=== PATIENT | male | born 1990 | race Native Hawaiian/Other Pacific Islander ===

== ENCOUNTER → 2024-09-25 14:24 | Outpatient (BNVA) | payer OTHER, SELFPAY | PROVIDERS: PCP Student in an Organized Health Care Education/Training Program; Visit Provider Physician Assistant Surgical ==

== ENCOUNTER 2024-10-21 08:29 | Outpatient (AMB) | payer OTHER, SELFPAY ==
--- OUTSIDE RECORDS SUMMARY | 2024-10-21 08:35 | XMS_ITS | Clinical Summary ---
Author Organization [facility] ity Address [address] [place] [address] Care Team Providers Care Manager Environmental Name Role Phone Unavailable Primary Care Provider Unavailabl e Social History Tobacco Use Types Packs/Day Years Used Date Smoking Tobacco: Every Day Cigarettes Smokeless Tobacco: Never Alcohol Use Standard Drinks/Week Comments Yes 0 (1 standard drink = 0.6 oz pur e alcohol) Sex and Gender Information Value Date Recorded Sex Assigned at Not on file Legal Sex Male 1:32 AM EST Gender Identity Not on file Sexual Orientation Not on file Obstetrics History Plan of Treatment Health Maintenance Due Date Last Done Comments DTaP,Tdap,and Td Vaccines (1 - Tdap) 2009 Hepatitis B Vaccines (1 of 3 - 19+ 3-dose series) 2009 COVID-19 Vaccine (2023-2 5 season) 2023 Influenza Vaccine (#1) 2024 HIB Vaccines Aged Out No longer eligi ble based on patient's age to complete this topic HPV Vaccines Aged Out No longer eligi ble based on patient's age to complete this topic Hepatitis A Vaccines Aged Out No long er eligible based on patient's age to complete this topic IPV Vaccines Aged Out No longer eligi ble based on patient's age to complete this topic MMR Vaccines Aged Out No longer eligi ble based on patient's age to complete this topic Meningococcal ACWY Vaccine Aged Out N o longer eligible based on patient's age to complete this topic Meningococcal B Vaccine Aged Out No l onger eligible based on patient's age to complete this topic Pneumococcal Vaccine: Pediat rics (0 to 5 Years) and At-Risk Patients (6 to 49 Years) Aged Out No longer eligible b ased on patient's age to complete this topic RSV Immunization Patients Un ros 20 months Aged Out No longer eligible b ased on patient's age to complete this topic Varicella Vaccines Aged Out No longer eligible based on patient's age to complete this topic
--- NOTE | 2024-10-21 11:07 | MHC.OFFVISWM ---
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 BMI 46.3: Details: Start time: 11.01am, End time: 11.46am I spent 40 minutes speaking with the patient on the phone plus an additional 5 minutes reviewing and updating records for a total of 45 minutes HPI Comments Details: Previous weight loss efforts: self diet and exercise Wakes up: 5am, Sleeps: 10pm Breakfast: skips Lunch: 1-2pm (eggs, bread, pereira) Dinner: 8pm (rice, beans, chicken) Snacks: none Exercise: Gym Beverages: Coffee (1 cup/d with cream and sugar), tea: none, soda: Red Bulls (1-2/d x4/wk), juice: ([place] 2/mth), ETOH: none (quit a year ago: 1/2 gallon per day of Tequila) [facility] Medical History (Updated 10/21/24 @ 11:11 by Angel Pena MD) Hypertension Sleep apnea treated with continuous positive airway pressure (CPAP) Morbid obesity Surgical History (Updated 09/25/24 @ 15:22 by Marce Chavez CMA) Hx of oral surgery Hx of appendectomy Family History (Updated 09/25/24 @ 15:22 by Marce Chavez CMA) Mother Diabetes Arthritis Father No problems noted. Social History (Updated 09/25/24 @ 15:23 by Marce Chavez CMA) Alcohol intake: never Patient Tobacco Use Status: Never used Tobacco Telehealth Telehealth Telehealth Platform: Telephone Location of provider rendering services: practice address Location of patient: address on file Patient Identification confirmed using: Name, : Yes Telehealth method: voice only Patient verbally consented to treatment: Yes Patient verbally consented to billing insurance company: Yes Patient informed of any privacy concerns related to visit: Yes Minutes spent on Phone/Video with Pt.: 45 Assessment & Plan Assessment & Plan (1) Morbid obesity: Code(s): E66.01 - Morbid (severe) obesity due to excess calories Category: Medical Plan: 1. Plan for lap sleeve gastrectomy. If diaphragmatic or ventral hernias are present at time of surgery, these will be repaired laparoscopically as well. I emphasized the importance of close follow-up, adherence to instructions and good communication. The surgery does not replace the need to change your lifestlyle which is the cause of the obesity problem. The surgery provides the motivation to try again to change your lifestyle, it reduces the appetite and make the transition to a better lifestyle easier and doubles the amount of weight you would lose compared to doing the lifestyle change without the surgery. You will need to be on a liquid diet with protein shakes for 2 weeks before surgery to maximize weight loss and boost your nutritional status to recover better from surgery and also for the first two weeks after surgery to let the stomach heal before we introduce other foods. After the first 2 weeks we will introduce protein bars and soft foods like scrambled eggs, cottage cheese and yogurt and after the 6th week will introduce meat, fish and cooked vegetables in small amounts. Over time you should be able to eat everything in small amounts. Side effects like nausea, vomiting, heartburn or abdominal pain are not common in the practice unless you are not following in the practice. This operation requires lifetime commitment to following in our practice and communication with me. You will much less weight and experience side effects if you don?t communicate or not following in the practice. Complications are rare and in our practice is about 1/10 of the national average. However, you can develop bleeding that may require transfusion (hasn?t happened for year in the practice), you may from complications (we did not have any deaths in the practice) and infections. Infections are usually a result of breakdown in communication or not understanding or following directions correctly. They are difficult to treat, they can happen during the first 6 weeks, they may require to be in the hospital for weeks or even months, not being able to eat by mouth and you may have drains and surgeries to try and correct the issue. Other risks and complications include possible conversion to an open procedure, leaks, small bowel obstruction, blood clots, cardiac, or pulmonary complications, as termination clerk complications such as ulcers, insufficient weight loss and vitamin deficiencies. 2. You will receive a link of our software denise to generate an individualized nutritional and exercise plan specific for you. Please send me a screenshot of the plans you will generate Meal to include lean meat (beef, fish, pork, turkey, chicken), or [place] yogurt, or egg whites, or beans with a salad with olive oil and fruits (berries, pears, apples, kiwi). Avoid salt, breads, potatoes, rice, pasta, desserts. 3. If you choose shakes, each shake would be drunk slowly, like coffee in a period of 2 hours. 4. If you choose bars, cut each bar in 4 pieces and eat each piece in 30min to make each bar last 2 hours. 5. I emphasized the importance of measuring accurately the food portion and measure it when serving the food in plate 6. The meal portions include a specific number of forks of meat and salad. You always eat the meat portion but you can replace up to half of salad/vegetables portion with rice, potatoes or pasta, or a fruit if you like. The less you do it the better weight loss will be. 7. One full-size fork is what it can be scooped on the fork without falling aside and not what can be bit with the fork. Use regular forks like those you find in a typical restaurant. 8. Please buy the body composition scale we discussed and send me weight measurements as soon as possible and then once a week. Always include your diet and exercise plan. 9. Please use the [employer] denise to create an exercise plan with one of the equipment of the Gym 10. Goal is to lose at least 1.5-2lbs per week 11. Goal to lose 10% of your weight before surgery, which is about 33lbs. Ultimate weight goal: 290lbs before surgery 12. Please follow the diet plan exactly without any change. If you don't like something about the plan or you feel hungry you need to communicate with me so I can help you revise the plan. You should not change the plan yourself. 13. To be scheduled for EGD to assess the stomach's anatomy.The possibility of biopsies was discussed. Patient needs to avoid use of NSAIDs and aspirin for 1 week prior to EGD. You must be on liquids only the day before your endoscopy. Risks of perforation and bleeding was discussed with the patient. This will be an outpatient procedure with IV sedation. Orders: Orders Insulin Today E66.01 - Morbid (severe) obesity due to excess calories, G47.30 - Sleep apnea, unspecified, I10 - Essential (primary) hypertension Hemoglobin A1c Today E66.01 - Morbid (severe) obesity due to excess calories, G47.30 - Sleep apnea, unspecified, I10 - Essential (primary) hypertension Lipid Panel Today E66.01 - Morbid (severe) obesity due to excess calories, G47.30 - Sleep apnea, unspecified, I10 - Essential (primary) hypertension IRON PROFILE Today E66.01 - Morbid (severe) obesity due to excess calories, G47.30 - Sleep apnea, unspecified, I10 - Essential (primary) hypertension Comprehensive Met. Panel Today E66.01 - Morbid (severe) obesity due to excess calories, G47.30 - Sleep apnea, unspecified, I10 - Essential (primary) hypertension C Reactive Protein Today E66.01 - Morbid (severe) obesity due to excess calories, G47.30 - Sleep apnea, unspecified, I10 - Essential (primary) hypertension Vitamin A Today E66.01 - Morbid (severe) obesity due to excess calories, G47.30 - Sleep apnea, unspecified, I10 - Essential (primary) hypertension TSH reflex Free T4 Today E66.01 - Morbid (severe) obesity due to excess calories, G47.30 - Sleep apnea, unspecified, I10 - Essential (primary) hypertension US abdomen comp w elastography Today E66.01 - Morbid (severe) obesity due to excess calories, G47.30 - Sleep apnea, unspecified, I10 - Essential (primary) hypertension ECG 12 lead EKG Today E66.01 - Morbid (severe) obesity due to excess calories, G47.30 - Sleep apnea, unspecified, I10 - Essential (primary) hypertension FL upper GI w air Today E66.01 - Morbid (severe) obesity due to excess calories, G47.30 - Sleep apnea, unspecified, I10 - Essential (primary) hypertension H Pylori Breath Test Today E66.01 - Morbid (severe) obesity due to excess calories, G47.30 - Sleep apnea, unspecified, I10 - Essential (primary) hypertension Complete Blood Count Auto Diff Today E66.01 - Morbid (severe) obesity due to excess calories, G47.30 - Sleep apnea, unspecified, I10 - Essential (primary) hypertension Vitamin B12 and Folate Today E66.01 - Morbid (severe) obesity due to excess calories, G47.30 - Sleep apnea, unspecified, I10 - Essential (primary) hypertension Zinc Today E66.01 - Morbid (severe) obesity due to excess calories, G47.30 - Sleep apnea, unspecified, I10 - Essential (primary) hypertension Vitamin B1 Today E66.01 - Morbid (severe) obesity due to excess calories, G47.30 - Sleep apnea, unspecified, I10 - Essential (primary) hypertension Ferritin Today E66.01 - Morbid (severe) obesity due to excess calories, G47.30 - Sleep apnea, unspecified, I10 - Essential (primary) hypertension Vitamin D 25-OH Total Today E66.01 - Morbid (severe) obesity due to excess calories, G47.30 - Sleep apnea, unspecified, I10 - Essential (primary) hypertension XR chest 2V Today E66.01 - Morbid (severe) obesity due to excess calories, G47.30 - Sleep apnea, unspecified, I10 - Essential (primary) hypertension Referrals Nutrition/Dietitian Referral E66.01 - Morbid (severe) obesity due to excess calories, G47.30 - Sleep apnea, unspecified, I10 - Essential (primary) hypertension Behavioral Health Referral E66.01 - Morbid (severe) obesity due to excess calories, G47.30 - Sleep apnea, unspecified, I10 - Essential (primary) hypertension
[2024-10-21 11:23] VITALS: BMI 46.3
== END 2024-10-21 11:47 | disposition home or self-care (01) ==
LOC: HO.HBS 08:29
PROVIDERS: PCP Student in an Organized Health Care Education/Training Program; Visit Provider Surgery
DX: E66.01 Morbid (severe) obesity due to excess calories (principal)
CPT/HCPCS: 99204

== ENCOUNTER 2024-10-21 08:29 | Outpatient (REF) | payer OTHER, SELFPAY ==
--- NOTE | ~2024-10-21 | XR_ITS ---
EXAMINATION: XR CHEST CLINICAL INFORMATION: E66.01 - Morbid (severe) obesity due to excess calories COMPARISON: None available. TECHNIQUE: 2 views of the chest were obtained. FINDINGS: The cardiac, hilar, and mediastinal contours are normal. The lungs are clear bilaterally. There is no pneumothorax or pleural effusion. There is no focal osseous or soft tissue abnormality. XR/XR chest 2V IMPRESSION: Normal chest. Electronically signed by: Deyvi Gonzalez MD 10/21/2024 01:26 PM EDT
--- NOTE | 2024-10-21 13:01 | ECG_ITS ---
Test Reason : E66.01 - Morbid (severe) obesity due to excess calories Blood Pressure : */* mmHG Vent. Rate : 53 BPM Atrial Rate : 53 BPM P-R Int : 132 ms QRS Dur : 100 ms QT Int : 458 ms P-R-T Axes : 16 -11 4 degrees QTcB Int : 429 ms Sinus bradycardia Minimal voltage criteria for LVH, may be normal variant ( R in aVL ) Borderline ECG No previous ECGs available Referred By: Angel Pena Electronically Signed By: JUNAID SAGASTUME
== END 2024-10-21 08:30 | disposition home or self-care (01) ==
LOC: HO.XRAY 08:29
PROVIDERS: PCP Student in an Organized Health Care Education/Training Program; Visit Provider Surgery
DX: E66.01 Morbid (severe) obesity due to excess calories (principal); G47.30 Sleep apnea, unspecified; I10 Essential (primary) hypertension; Z68.42 Body mass index [BMI] 45.0-49.9, adult; Z79.899 Other long term (current) drug therapy
CPT/HCPCS: 71046; 93005

== ENCOUNTER → 2024-10-21 13:01 | Outpatient (BNV) | payer OTHER, SELFPAY | PROVIDERS: PCP Student in an Organized Health Care Education/Training Program; Visit Provider Internal Medicine | DX: R00.1 Bradycardia, unspecified (principal) | CPT/HCPCS: 93010 ==

== ENCOUNTER → 2024-10-21 13:16 | Outpatient (BNV) | payer OTHER, SELFPAY | PROVIDERS: PCP Student in an Organized Health Care Education/Training Program; Visit Provider Radiology Diagnostic Radiology | DX: I10 Essential (primary) hypertension (principal); E66.01 Morbid (severe) obesity due to excess calories | CPT/HCPCS: 71046 ==

== ENCOUNTER 2024-11-05 10:32 | Outpatient (REF) | payer OTHER, SELFPAY ==
[2024-11-05 10:52] LABS: MANUAL DIFF FLAG NO
[2024-11-05 11:30] LABS: Hematocrit 41.4 % (42.0-52.0); Hemoglobin 13.5 g/dl (14.0-18.0); Imm Gran Abs Auto 0.02 X10*3/uL (0.00-0.03); Imm Gran Pct Auto 0.3 % (0.0-0.4); Lymphocytes Absolute Auto 2.5 X10*3/uL (1.2-4.9); Mean Corpuscular HGB Conc 32.6 g/dl (31.0-36.0); Mean Corpuscular Hemoglobin 26.4 pg (27.0-33.0); Mean Corpuscular Volume 81.0 fL (80.0-98.0); NRBC Abs Auto 0.000 X10*3/uL (0.0-0.012); NRBC Pct Auto 0.0 /100WBC (0.0-0.2); Platelet Count 263 X10*3/uL (160-400); Red Blood Count 5.11 X10*6/uL (4.60-5.80); White Blood Count 7.5 X10*3/uL (4.8-10.8)
--- OUTSIDE RECORDS SUMMARY | 2024-11-05 11:34 | XMS_ITS | Clinical Summary ---
Author Organization [facility] ity Address [address] [place] [address] Care Team Providers Care Master Ship Name Role Phone Unavailable Primary Care Provider [...] - 19+ 3-dose series) 2009 COVID-19 Vaccine ( - 2023-2 5 season) 2023 Depression Screening 04/10/2024 Influenza [...]
[2024-11-05 11:43] LABS: Hemoglobin A1C 139.7375 umol/L; Total Hemoglobin (HGBA1C) 3500.1324 umol/L
[2024-11-05 12:10] LABS: Alanine Aminotransferase 68 U/L (0-40); Albumin Level 4.3 g/dL (3.5-5.0); Alkaline Phosphatase 104 U/L (39-117); Anion Gap 12 (12-20); Aspartate Amino Transferase 40 U/L (5-37); Blood Urea Nitrogen 11 mg/dL (9-16); Calcium 9.4 mg/dL (8.4-10.2); Carbon Dioxide 23 mmol/L (22-29); Chloride 108 mmol/L (96-108); Cholesterol 177 mg/dL (<200); Estimated Glomerular Filt Rate > 60; HDL Cholesterol 25 mg/dL (>40); Iron 62 mcg/dL (45-160); Percent Iron Saturation 21 % (15-50); Potassium 4.1 mmol/L (3.3-5.1); Sodium 139 mmol/L (135-145); Total Iron Binding Capacity 289 mcg/dL (228-428); Total Protein 7.8 g/dL (6.5-8.0); Triglycerides 290 mg/dL (<150); Unsaturated Iron Binding 227 ug/dL
[2024-11-05 12:30] LABS: Ferritin 154 ng/mL (20-250)
[2024-11-05 12:35] LABS: Folate 7.1 ng/mL (> or = 4.0); Vitamin B12 374 pg/mL (200-900)
== END 2024-11-05 10:33 | disposition home or self-care (01) ==
LOC: HO.LAB 10:32
PROVIDERS: Visit Provider Surgery
DX: I10 Essential (primary) hypertension (principal); E66.01 Morbid (severe) obesity due to excess calories; G47.30 Sleep apnea, unspecified
CPT/HCPCS: 36415; 80053; 80061; 82306; 82607; 82728; 82746; 83036; 83525; 83540; 84425; 84443; 84590; 84630; 85025; 86140

== ENCOUNTER 2024-11-18 10:00 | Outpatient (AMB) | payer OTHER, SELFPAY ==
--- NOTE | 2024-11-18 10:10 | A.OFFWM_ITS ---
Intake Intake Visit Reasons: OV BH Intake Allergies No Known Allergies Allergy (Verified 10/21/24 11:08) [facility] Medical History (Updated 11/11/24 @ 19:34 by Angel Pena MD) Hypertension Sleep apnea treated with continuous positive airway pressure (CPAP) Morbid obesity Surgical History (Updated 09/25/24 @ 15:22 by Marce Chavez CMA) Hx of oral surgery Hx of appendectomy Family History (Updated 09/25/24 @ 15:22 by Marce Chavez CMA) Mother Diabetes Arthritis Father No problems noted. Social History (Updated 09/25/24 @ 15:23 by Marce Chavez CMA) Alcohol intake: never Patient Tobacco Use Status: Never used Tobacco Behavioral Health Assessment Weight Management Therapy Therapy Notes Details The patient is a 34-year-old male presenting for an initial behavioral health assessment as part of the surgical weight loss program. He was referred by a friend who previously underwent bariatric surgery. The patient reports medical concerns including pre-diabetes and high blood pressure, and he is seeking a long-term lifestyle change. His primary goals include improving his relationship with food and developing healthier eating habits to support overall well-being and weight management. Presenting Concerns Referral Source WMP-Provider. Reason for referral Completion of behavioral health assessment as part of process for weight-loss surgery. Precipitating Event Obesity. Living Situation Current Living Situation Rent At risk of losing current housing? No Satisfied with current living situation? Yes Comments PT lives alone. Social History Family history and relationship PT is single, never . Mother alive, Bio-father a couple of months ago. She has a sister from her mother's side, and two siblings from her father's side, whom she doesn't know. PT is close to his mother, they have Monday dinner every week. Parental/Familial rod filler obligations None. Developmental history and status None. Currently WNL. Social support Mother, leaders at his confucianism. Community support Congregational community. Episcopalian/Spirituality Cheondoism goes to confucianism 3 times a week. Cultural/Ethnic information . South African. Legal Involvement and History Current or historical involvement with the legal system? Arrested in the past. Education Highest grade completed HS and 1 year of college. [employer] license. Preferred learning style Learn by doing and Visual Currently enrolled in educational program? No Interested in further educational program? Yes Educational Interests/Skills Anat-related activities. Would like to do bible school. Employment Employment Status [employer] ([employer] Wants help to find employment? No Meaningful activities Anat-related activities. Hiking, outdoor meditation. Financial Situation Describe current financial situation Comfortable Financial assistance? Food [place] Service Service? No Mental Health and Addiction Treatment Current/Past substance abuse? No Comments Alcohol: None Currently. Last time Cigarettes/Tobacco: None Currently. Last time Cannabis/Edibles: None Currently. Last time Current/Past addictive behavior concerns? No Psychiatric history PT has never been in any type of MH treatment in the past or been Dx with any MH condition by any professional. Also, never been on any psych meds. Medical and Physical Health Summary Additional Medical History not covered in history pre-diabetes. Sexual History concerns None reported [facility] Pain Screening Current pain? No Pain in the last few months? Yes Comments Shoulder, Knee and lower back pain. Medications Is the patient compliant with medications? Yes Does the patient have Alex Guardian in place? Not applicable Does the patient use complimentary health approaches? No Trauma/Abuse History0 History of trauma? No (None reported in session - GROVER score:4) Questionnaires PHQ-9 Over the last 2 weeks, how often have you been bothered by any of the following problems? 1. Little interest or pleasure in doing things: not at all 2. Feeling down, depressed, or hopeless: not at all 3. Trouble falling or staying asleep, or sleeping too much: several days 4. Feeling tired or having little energy: several days 5. Poor appetite or overeating: nearly every day 6. Feeling bad about yourself - or that you are a failure or have let yourself or your family down: not at all 7. Trouble concentrating on things, such as reading the newspaper or watching television: several days 8. Moving or speaking so slowly that other people could have noticed. Or the opposite - being so fidgety or restless that you have been moving around a lot more than usual: not at all 9. Thoughts that you would be better off or of hurting yourself in some way: not at all Total score: 6 Depression Screening Interpretation: Positive (From new PT pack completed 09/25/24) Depression Screening Done: Yes Source: Developed by Drs. Fred Rivera, Belem Mendoza, Kit Sanderson and colleagues, with an educational luciano from [employer]. Binge Eating Scale Group 1 A. I don't feel self-conscious about my wt. or body size when I'm with others. B. I feel concerned about how I look to others, but it normally does not make me fell disappointed with myself C. I do get self-conscious about my appearance and wt. which makes me feel disappointed in myself. D. I feel very self-conscious about my wt. and frequently I feel intense shame and disgust for myself. I try to avoid social contacts because of my self- consciousness. Response Group 1: B Group 2 A. I don't have any difficulty eating slowly in the proper manner. B. Although I seem to gobble down foods, I don't end up feeling stuffed because of eating to much. C. At times, I tend to eat quickly and then, I feel uncomfortably full afterwards. D. I have the habit of bolting down my food, without really chewing it. When this happens I usually feel uncomfortably stuffed because I've eaten to much. Response Group 2: C Group 3 A. I feel capable to control my eating urges when I want to. B. I feel like I have failed to control my eating more than the average person. C. I feel utterly helpless when it comes to feeling in control of my eating urges. D. Because I feel so helpless about controlling my eating I have become very desperate about trying to get control. Response Group 3: B Group 4 A. I don't have the habit of eating when I'm bored. B. I sometimes eat when I'm bored, but often I'm able to get busy and get my mind off food. C. I have a regular habit of eating when I'm bored, but occasionally, I can use some other activity to get my mind off eating. D. I have a strong habit of eating when I'm bored. Nothing seems to help me breath the habit. Response Group 4: C Group 5 A. I'm usually physically hungry when I eat something. B. Occasionally, I eat something on impulse even though I really am not hungry. C. I have the regular habit of eating foods, that I might not really enjoy, to satisfy a hungry feeling even though physically, I don't need the food. D. Although I'm not physically hungry, I get a hungry feeling in my mouth that only seems to be satisfied when I eat a food, like sandwich, that fills my mouth. Sometimes, when I eat the food to satisfy my mouth hunger, I then spit the food out so I won't gain weight. Response Group 5: B Group 7 A. I don't lose total control of my eating when dieting even after periods when I overeat. B. Sometimes when I eat a forbidden food on a diet, I feel like I blew it and eat even more. C. Frequently, I have the habit of saying to myself, I've blown it now, why not go all the way, when I overeat on a diet. When that happens I eat more. D. I have a regular habit of starting a strict diets for myself but I break the diets by going on an eating binge. My life seems to be either a feast or famine. Response Group 7: B Group 8 A. I rarely eat so much food that I feel uncomfortably stuffed afterwards. B. Usually about once a month, I each such a quantity of food, I end up feeling very stuffed. C. I have regular periods during the month when I eat large amounts of food, either at mealtime or at snacks. D. I eat so much food that I regularly feel quite uncomfortable after eating and sometimes a bit nauseous. Response Group 8: C Group 9 A. My level of calorie intake does not go up very high or go down very low on a regular basis. B. Sometimes after I overeat, I will try to reduce my caloric intake to almost nothing to compensate for the excess calories I've eaten. C. I have a regular habit of overeating during the night. It seems that my routine is not to be hungry in the morning but overeat in the evening. D. In my adult years, I have had week-long periods where I practically starve myself. This follows periods when I overeat. It seems I live a life of either feast or famine. Response Group 9: C Group 10 A. I usually am able to stop eating when I want to. I know when enough is enough. B. Every so often, I experience a compulsion to eat which I can't seem to control. C. Frequently, I experience strong urges to eat which I seem unable to control, but at other times I can control my eating urges. D. I feel incapable of controlling urges to eat. I have a fear of not being able to stop eating voluntarily. Response Group 10: C Group 11 A. I don't have any problem stopping eating when I feel full. B. I usually can stop eating when I feel full but occasionally overeat leaving me feeling uncomfortably stuffed. C. I have a problem stopping eating once I start and usually I feel uncomfortably stuffed after I eat a meal. D. Because I have a problem not being able to stop eating when I want, I sometimes have to induce vomiting to relieve my stuffed feeling. Response Group 11: B Group 12 A. I seem to eat just as much when I'm with others, Family social gatherings as when I'm by myself. B. Sometimes, when I'm with other persons, I don't eat as much as I want to eat because I'm self-conscious about my eating. C. Frequently, I eat only a small amount of food when others are present, because I'm very embarrassed about my eating. D. I feel so ashamed about overeating that I pick times to overeat when I know no one will see me. I feel like a closet eater. Response Group 12: B Group 13 A. I eat three meals a day with only an occasional between meal snack. B. I eat 3 meals a day, but I also normally snack between meals. C. When I am snacking heavily, I get in the habit of skipping regular meals. D. There are regular periods when I seem to be continually eating, with no planned meals. Response Group 13: A Group 14 A. I don't think much about trying to control unwanted eating urges. B. At least some of the time, I feel my thoughts are pre-occupied with trying to control my eating urges. C. I feel that frequently I spend much time thinking about how much I ate or about trying not to eat anymore. D. It seems to me that most of my waking hours are pre-occupied by thoughts about eating or not eating. I feel like I'm constantly struggling not to eat. Response Group 14: D Group 15 A. I don't think about food a great deal. B. I have strong craving for food but they last only for brief periods of time. C. I have days when I can't seem to think about anything else but food. D. Most of my days seem to be pre-occupied with thoughts about food. I feel like I live to eat. Response Group 15: B Group 16 A. I usually know whether or not I'm physically hungry. I take the right portion of food to satisfy me. B. Occasionally, I feel uncertain about knowing whether or not I'm physically hungry. A these times it's hard to know how much food I should take to satisfy me. C. Even though I might know how many calories I should eat, I don't have any idea what is a normal amount of food for me. Response Group 16: C Binge Eating Score: 22 (#6 missed. Will review at next visit) Score less than 17 Minimal Risk Score between 18-26 Moderate Risk Score between 27-46 High Risk Assessment & Plan Assessment & Plan (1) Adjustment disorder: Code(s): F43.20 - Adjustment disorder, unspecified (2) Pre-bariatric surgery psychological evaluation: Code(s): Z71.89 - Other specified counseling Plan The patient was not cleared today as the assessment was not completed. The patient will return in 2-4 weeks to continue the evaluation. Next appointment: 12/11/2024 at 10am, for intake part 2. Coding Level of Care Code New Pt Psy Diag Dmitri ([id number]) Patient Type New Diagnoses Adjustment disorder F43.20 Pre-bariatric surgery psychological evaluation Z71.89 Time Spent (min) 55
--- OUTSIDE RECORDS SUMMARY | 2024-11-18 10:39 | XMS_ITS | Clinical Summary ---
Author Organization [facility] ity Address [address] [place] [address] Care Team Providers Care Adventure Education Teacher Name Role Phone Unavailable Primary Care Provider [...]
== END 2024-11-18 11:12 | disposition home or self-care (01) ==
LOC: HO.HBST 10:01
PROVIDERS: PCP Student in an Organized Health Care Education/Training Program; Visit Provider Counselor Mental Health
DX: F43.20 Adjustment disorder, unspecified (principal); Z71.89 Other specified counseling
CPT/HCPCS: 90791

== ENCOUNTER 2024-12-17 13:25 | Day surgery (SDC) | payer OTHER, SELFPAY ==
--- OUTSIDE RECORDS SUMMARY | 2024-10-29 09:14 | XMS_ITS | Clinical Summary ---
Author Organization [facility] ity Address [address] [place] [address] Care Team Providers Care Component Lab Tech Name Role Phone Unavailable Primary Care Provider [...] 2009 COVID-19 Vaccine (2023-2 5 season) 2023 Depression Screening 04/10/2024 Influenza Vaccine (#1) 2024 HIB Vaccines Aged [...]
[2024-11-22 09:52] VITALS: BMI 46.3
--- NOTE | 2024-11-25 11:30 | P.CONAN_ITS ---
Documented by User: Alka Dasilva NP 11/25/24 11:32 HPI - Anesthesia Eval Consult details Narrative: 34 yr old for upper endoscopy Morbid obesity: BMI 46.3 YANELY: on CPAP PMFSH Active Problems Active Problems: All Active Problems Vitamin D deficiency (Acute) Hypertension (Acute) Sleep apnea treated with continuous positive airway pressure (CPAP) (Acute) Morbid obesity (Acute) Past Medical History Medical History Hypertension Sleep apnea treated with continuous positive airway pressure (CPAP) Morbid obesity Family History Family History Mother Diabetes Arthritis Father No problems noted. Surgical History Surgical History Hx of oral surgery Hx of appendectomy Social History Social History Are you a primary healthcare facility administrator to a significant other at home: No Do you presently have visiting nurse or other home services: No Alcohol intake: never Patient Tobacco Use Status: Former Tobacco user Tobacco use type: Cigarette Use of substances other than those prescribed or required for medical reasons: No Substance Use Type Other:: States stopped smoking marijuana 1 year ago Have you been hit, kicked, punched, or otherwise hurt by someone within the past year? If so, by whom?: No Are you DNR?: No Advance Directives: No Advance Directives Information Provided: Yes Poor oral hygiene: No Meds Allergies Allergy/AdvReac Type Severity Reaction Status Date / Time No Known Allergies Allergy Verified 10/21/24 11:08 Home Medications ?Medication ?Instructions ?Recorded ?Confirmed ?Last Taken ?Type amlodipine 10 mg tablet 10 mg PO DAILY 09/25/2410/08 Unknown History Exam Height,Weight and Vital Signs: Height 5 ft 10 in Weight 146.51 kg Pertinent Lab Results Pertinent Lab Results: Laboratory Tests 11/05/24 10:49 WBC 7.5 RBC 5.11 Hgb 13.5 L Hct 41.4 L Plt Count 263 Sodium 139 Potassium 4.1 BUN 11 Creatinine 0.90 Narrative Narrative: EKG 10/2024 Test Reason : E66.01 - Morbid (severe) obesity due to excess calories Blood Pressure : */* mmHG Vent. Rate : 53 BPM Atrial Rate : 53 BPM P-R Int : 132 ms QRS Dur : 100 ms QT Int : 458 ms P-R-T Axes : 16 -11 4 degrees QTcB Int : 429 ms Sinus bradycardia Minimal voltage criteria for LVH, may be normal variant ( R in aVL ) Borderline ECG No previous ECGs available Documented by User: Moraima Huddleston MD 12/17/24 13:48 [facility] Past Medical History Medical History Hypertension Sleep apnea treated with continuous positive airway pressure (CPAP) Morbid obesity Family History Family History Mother Diabetes Arthritis Father No problems noted. Family history of problems with anesthesia: No Surgical History Surgical History Hx of oral surgery Hx of appendectomy History of Problems with Anesthesia: No Social History Social History Are you a primary healthcare facility administrator to a significant other at home: No Do you presently have visiting nurse or other home services: No Alcohol intake: never Patient Tobacco Use Status: Former Tobacco user Tobacco use type: Cigarette Use of substances other than those prescribed or required for medical reasons: No Substance Use Type Other:: States stopped smoking marijuana 1 year ago Have you been hit, kicked, punched, or otherwise hurt by someone within the past year? If so, by whom?: No Are you DNR?: No Advance Directives: No Advance Directives Information Provided: Yes Poor oral hygiene: No Meds Allergies Allergy/AdvReac Type Severity Reaction Status Date / Time No Known Allergies Allergy Verified 10/21/24 11:08 Home Medications ?Medication ?Instructions ?Recorded ?Confirmed ?Last Taken ?Type amlodipine 10 mg tablet 10 mg PO DAILY 09/25/2410/08 Unknown History Exam Airway Heart: rrr Lungs: cta Assessment and Plan Assessment Anesthesia Assessment: Anesthesia Plan Discussed and Chart Reviewed Final Anesthetic Review Family History of Problems with Anesthesia: No History of Problems with Anesthesia: No NPO: Yes ASA Class: III Final Preanesthetic Review: No Changes in Pt Med Stat, Meds/Allgs Chart Reviewed, Consent Obtained/Reviewed and Anes Risks/Benef Reviewed Patient Risk: Intermediate Procedure Risk: Low Anesthetic Plan Anesthetic Plan: MAC: Disposition: Standard PACU
[2024-12-17 13:36] VITALS: BP 128/72; PULSE 71; RESP 16; TEMP 36.7; O2SAT 97
--- NOTE | 2024-12-17 13:43 | MHC.SHP ---
Pre-Procedural Eval Section A - 24 Hr Update-Section A only Date of Service: 12/17/24 The patient is an INPATIENT: No The patient has been examined within 24 hours of the surgical procedure. The History & Physical has been completed within 30 days and I have reviewed it.: Yes Section B - Complete if H&P > 30 days Chief Complaint: Morbid (severe) obesity due to excess calories Relevant Family History (Specify if Yes): No Relevant Social History: None Present Medications: None Medical History: No relevant PMH History of Previous Operations: No relevant previous surgery Allergies: Allergies Allergy/AdvReac Type Severity Reaction Status Date / Time No Known Allergies Allergy Verified 10/21/24 11:08 Review of Systems Sugical H&P ROS: Negative: Constitution, Cardiovascular, Respiratory, Neurological, Psychiatric, Hem-Onc, Allergic/Immunologic, Gastrointestinal, Genitourinary, Musculoskeletal, Integumentary, Endocrine and Eyes/Ears/Nose/Throat Exam Surgical H&P Exam: Normal: HEENT, Normal: Heart, Normal: Lungs, Normal: Extremities, Normal: Abdomen, Normal: Skin and Normal: Neurological Plan Diagnosis/Plan: Unchanged (EGD to assess the stomach's anatomy. Risks of bleeding and perforation were discussed with the patient and he is in agreement with the plan.) I have reviewed the history and physical and performed a pertinent physical examination on my patient. No changes have occurred unless specified. Time Spent With Patient Time: Total time managing care of this patient today ____ minutes.
--- NOTE | 2024-12-17 13:43 | PM.OP ---
Brief Operative Note Date of Service: 12/17/24 Pre-op diagnosis: Morbid obesity Post-op diagnosis: same Procedure: PROCEDURE DATE: 12/17/2024 PREOPERATIVE DIAGNOSIS: Morbid obesity POSTOPERATIVE DIAGNOSIS: ?Same as above. Normal endoscopy PROCEDURE: [id number] with biopsies Surgeon: Rishi Pena M.D.. Ph.D. Risk And Compliance Analytics Director: None ? Anesthesia: IV sedation Estimated blood loss: ?Minimal FINDINGS AND PROCEDURE: ? OPERATIVE INDICATIONS: ?The patient is a 34 year old male known to me who is interested in bariatric surgery. Based on this information I recommended an upper endoscopy to evaluate the patient's symptoms. Risks and complications of the surgery were discussed with the patient in advance particularly the possibility of perforation or bleeding that may require surgical intervention. The patient understood the risks and was in agreement with the plan. ? PROCEDURE: After informed consent was obtained by the patient, the patient was ?transferred to the Operating Room and was placed in the supine position.? After successful induction of IV sedation, a mouth block was inserted and the patient was placed in the left lateral decubitus position. An upper endoscopy was performed next, the oropharynx and esophagus appeared within the normal limits. There was no hiatal hernia. The z-line was smooth. Two biopsies were obtained from the distal esophagus 2-3 cm proximal to the GE junction and two additional biopsies from the GE junction. The stomach was entered and it appeared to be of normal size. There was no gastritis. There was no stricture or ulcer. A biopsy was obtained from the gastric fundus and the antrum. No significant bleeding was noted from any of the biopsy sites. Retroflexion of the scope confirmed a normal GE junction. The scope was then advanced into the duodenum which appeared to be normal as well. At that point the duodenum ?and the stomach were decompressed and the scope was withdrawn from the patient's mouth. The patient extubated and was transferred in stable condition to the Recovery Room for further care. I was present and performed all steps of the procedure. There were no residents to assist with this case. Stefan Pena M.D., Ph.D. Surgeon: Angel Pena MD Anesthesia: MAC Was an Risk And Compliance Analytics Director used for this Procedure?: No Estimated blood loss (mL): 0 IV fluids (mL): 400 Urine output (mL): 0 (No Paula to record output) Pathology: other (1) antrum x1, 2) fundus x1, 3) GE junction x2, 4) distal esophagus x2) Condition: stable Disposition: PACU
[2024-12-17] MEDS: Lactated Ringers 1,000 ML 80 ML IVCONT (13:47)
[2024-12-17 14:45] VITALS: BP 128/70; PULSE 88; RESP 16; TEMP 36.7; O2SAT 98
[2024-12-17 15:00] VITALS: BP 117/64; PULSE 67; RESP 17; TEMP 36.7; O2SAT 94
== END 2024-12-17 15:16 | disposition home or self-care (01) ==
PROVIDERS: PCP Student in an Organized Health Care Education/Training Program; Visit Provider Surgery
PROC: 0DJ08ZZ Inspection of Upper Intestinal Tract, Via Natural or Artificial Opening Endoscopic (ICD-10-PCS; CPT 43235; principal; 2024-12-17 14:50)
DX: E66.01 Morbid (severe) obesity due to excess calories (principal); Z68.42 Body mass index [BMI] 45.0-49.9, adult; I10 Essential (primary) hypertension; G47.30 Sleep apnea, unspecified; Z79.899 Other long term (current) drug therapy; Z99.89 Dependence on other enabling machines and devices; Z98.890 Other specified postprocedural states; Z87.891 Personal history of nicotine dependence
CPT/HCPCS: 43239; 88305; 88313; 88342; J2704

== ENCOUNTER → 2024-12-17 13:25 | Outpatient (BNV) | payer OTHER, SELFPAY | PROVIDERS: PCP Student in an Organized Health Care Education/Training Program; Visit Provider Surgery | DX: E66.01 Morbid (severe) obesity due to excess calories (principal); Z68.42 Body mass index [BMI] 45.0-49.9, adult | CPT/HCPCS: 43239 ==

== ENCOUNTER 2024-12-23 10:10 | Outpatient (AMB) | payer OTHER, SELFPAY ==
--- NOTE | 2024-12-23 10:05 | A.OFFWM_ITS ---
Intake Intake Visit Reasons: VIDEO BH F/U Allergies No Known Allergies Allergy (Verified 12/17/24 13:51) FOR[facility]LY [facility] Medical History Hypertension Sleep apnea treated with continuous positive airway pressure (CPAP) Morbid obesity Surgical History Hx of oral surgery Hx of appendectomy Family History Mother Diabetes Arthritis Father No problems noted. Social History Are you a primary home care music therapist to a significant other at home: No Do you presently have visiting nurse or other home services: No Alcohol intake: never Patient Tobacco Use Status: Former Tobacco user Tobacco use type: Cigarette Behavioral Health Assessment Weight Management Therapy Therapy Notes Details The patient is a 34-year-old male presenting for his second visit to complete the behavioral health assessment as part of the surgical weight loss program. He was referred by a friend who previously underwent bariatric surgery. The patient?s medical history is notable for pre-diabetes and hypertension. He is seeking a long-term lifestyle change, with primary goals of improving his relationship with food and establishing healthier eating habits to support overall well-being and sustained weight management. The patient began the program at 323 lbs and has set a goal to reach a weight below 200 lbs. He has been adherent to the recommended meal and exercise plan, resulting in steady weight loss to date. He denies any history of mental health treatment, psychiatric hospitalizations, or behavioral health crises. He also reports no history or current concerns regarding suicidal ideation, suicide attempts, self-harm, harm to others, or substance use. Presenting Concerns Referral Source WMP-Provider. Reason for referral Completion of behavioral health assessment as part of process for weight-loss surgery. Precipitating Event Obesity. Living Situation Current Living Situation Rent At risk of losing current housing? No Satisfied with current living situation? Yes Comments PT lives alone. Food/Weight/Diet Expectations of change The patient started the program on 10/21/2024 at 323Lbs, and the initial goal is to lose 10% of his weight before surgery, which is about 33lbs. Ultimate weight goal: 290lbs before surgery. PT reports his most recent weight as of today is 308Lbs. PT is implementing the following: Current meal plan: using the right BMI. A combination of shakes, 1 bar, and 1 meal. Exercise plan: outdoor walks/hiking. Pt has a gym membership. scale: yes Communication with/ providers: Mondays History/Relationship with food PT reports at times he would skip meals and then will only eat once, but it will be a bigger portion to compensate for all the meals he missed. Pt reports food is one of the things he can control, Denies stress/emotional eating; however, as a , everything goes back to food. Last year (late November) When he quit smoking cigarettes, he noticed an increase in snacking and smoking which lead to gaining about 50Lbs in about 6 months. Example of meals before starting the program: Breakfast: @10-11 am. Eggs, pereira, bread. Lunch: @3-4 pm. while at work, take-out, 6-piece chicken wings Dinner: @9pm. Rice, beans, fried chicken. Rice w. sauce and steak. Snacks: none Drinks/Liquids: Coffee (1 cup/d with cream and sugar), tea: none, soda:1-2 cans at day, Energy Drinks: Red Bulls (1-2/d x4/wk), juice: (1 cup in the morning, apple/Winigan), ETOH: none (quit a year ago: 1/2 gallon per day of Tequila) History/Relationship with weight PT reports he started getting bigger in 2nd grade. PT recalls being under 200Lbs at age 19. In the last 10 years, the patient's Lowest weight was 230Lbs and highest 410Lbs. History/Relationship with dieting diets with exercise. Shakes, OTC pills. PT reports he knows how to lose weight. In the past, he has lost 80Lbs in 3-5 months, but once he loses and gets to his goal, then he starts engaging in old patterns. Marie (Apr-August 2024) lost 13Lbs. D/c because stop working after 1 month, appetite came back to normal even when dosage was increased. Binge Eating Do you frequently eat large amounts of food in short periods of time, not feeling physically hungry? Yes Do you feel out of control when you eat a large amount of food in a short period of time? No Do you eat large amounts of food rapidly and typically alone? No Night Eating Do you wake up at least once during the night to eat? No If you wake up in the night, do you find that it is necessary to eat something in order to fall back asleep? No Do you have little or no appetite in the morning and feel very hungry in the evening, often overeating between dinner and when you go to bed? Yes Social History Family history and relationship PT is single, never . Mother alive, Bio-father a couple of months ago. She has a sister from her mother's side, and two siblings from her father's side, whom she doesn't know. PT is close to his mother, they have Monday dinner every week. 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 Developmental history and status None. Currently WNL. Social support Mother, leaders at his denominational. Community support Anabaptist community. Samaritan/Spirituality Alevism goes to denominational 3 times a week. Cultural/Ethnic information . [place]i. Legal Involvement and History Current or historical involvement with the legal system? Arrested in the past. Education Highest grade completed HS and 1 year of college. [employer] license. Preferred learning style Learn by doing and Visual Currently enrolled in educational program? No Interested in further educational program? Yes Educational Interests/Skills Anat-related activities. Would like to do bible school. 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 No Meaningful activities Anat-related activities. Hiking, outdoor meditation. Financial Situation Describe current financial situation Comfortable Financial assistance? Food [place] Service Service? No Mental Health and Addiction Treatment Current/Past substance abuse? No Comments Alcohol: None Currently. Last time Cigarettes/Tobacco: None Currently. Last time Cannabis/Edibles: None Currently. Last time Current/Past addictive behavior concerns? No Psychiatric history PT has never been in any type of MH treatment in the past or been Dx with any MH condition by any professional. Also, never been on any psych meds. Medical and Physical Health Summary Additional Medical History not covered in history pre-diabetes. Sexual History concerns None reported [facility] Pain Screening Current pain? No Pain in the last few months? Yes Comments Shoulder, Knee and lower back pain. Medications Is the patient compliant with medications? Yes Does the patient have Alex Guardian in place? Not applicable Does the patient use complimentary health approaches? No Trauma/Abuse History History of trauma? No (None reported in session - GROVER score:4) Questionnaires PHQ-9 Over the last 2 weeks, how often have you been bothered by any of the following problems? 1. Little interest or pleasure in doing things: not at all 2. Feeling down, depressed, or hopeless: not at all 3. Trouble falling or staying asleep, or sleeping too much: not at all 4. Feeling tired or having little energy: not at all 5. Poor appetite or overeating: not at all 6. Feeling bad about yourself - or that you are a failure or have let yourself or your family down: not at all 7. Trouble concentrating on things, such as reading the newspaper or watching television: not at all 8. Moving or speaking so slowly that other people could have noticed. Or the opposite - being so fidgety or restless that you have been moving around a lot more than usual: not at all 9. Thoughts that you would be better off or of hurting yourself in some way: not at all Total score: 0 Depression Screening Interpretation: Negative Depression Screening Done: Yes 41954 - PHQ-9 Billing: Yes Source: Developed by Drs. Fred Rivera, Belem Mendoza, Kit Sanderson and colleagues, with an educational luciano from [employer]. Assessment & Plan Assessment & Plan (1) Adjustment disorder: Code(s): F43.20 - Adjustment disorder, unspecified (2) Pre-bariatric surgery psychological evaluation: Code(s): Z71.89 - Other specified counseling Plan Following a comprehensive behavioral health assessment?including review of the Binge Eating Scale, PHQ-9, mental status evaluation, and patient self- report?there are currently no behavioral health contraindications to proceeding with bariatric surgery. The patient demonstrates appropriate insight, motivation, and psychological readiness for the procedure. No active psychiatric symptoms or maladaptive eating behaviors were identified that would impede surgical outcomes at this time. The patient is cleared from a behavioral health perspective to proceed with bariatric surgery and documentation can be submitted for insurance approval as indicated. PT will return for a follow-up behavioral health visit 1?4 weeks postoperatively to monitor psychological adjustment, reinforce coping strategies, and screen for any emerging concerns such as mood changes, adjustment difficulties, or disordered eating patterns. Additional behavioral health support will be provided as needed based on postoperative assessment. Next denise: 1-4 weeks PO. Telehealth Telehealth Telehealth Platform: [employer] [facility] [employer] Location of provider rendering services: other (Home office. [place], [place]) Location of patient: address on file Patient Identification confirmed using: Name, : Yes Telehealth method: video Patient verbally consented to treatment: Yes Patient verbally consented to billing insurance company: Yes Patient informed of any privacy concerns related to visit: Yes Minutes spent on Phone/Video with Pt.: 60 Coding Level of Care Code Established Pt Tele Psytx >53 mins (38203) Patient Type Established Diagnoses Adjustment disorder F43.20 Pre-bariatric surgery psychological evaluation Z71.89 Additional Codes PHQ-9 - 37883 - PHQ-9 Billing: Yes ([id number]) Time Spent (min) 60
--- OUTSIDE RECORDS SUMMARY | 2024-12-23 12:46 | XMS_ITS | Clinical Summary ---
Author Organization [facility] ity Address [address] [place] [address] Care Team Providers Care Hide Mill Worker Name Role Phone Unavailable Primary Care Provider [...] of 3 - 19+ 3-dose series) 2009 Depression Screening 04/10/2024 COVID-19 Vaccine ( - 2023-2 5 season) 2024 Influenza Vaccine (#1) 2024 HIB Vaccines Aged [...]
== END 2024-12-23 11:54 | disposition home or self-care (01) ==
LOC: HO.HBST 10:10
PROVIDERS: PCP Student in an Organized Health Care Education/Training Program; Visit Provider Counselor Mental Health
DX: F43.20 Adjustment disorder, unspecified (principal); Z71.89 Other specified counseling
CPT/HCPCS: 90837

== ENCOUNTER 2024-12-24 09:19 | Outpatient (REF) | payer OTHER, SELFPAY ==
--- NOTE | ~2024-12-24 | US_ITS ---
EXAMINATION: US COMPLETE ABDOMEN WITH LIVER ELASTOGRAPHY CLINICAL INFORMATION: E66.01 - Morbid (severe) obesity due to excess calories COMPARISON: None available. TECHNIQUE: Real-time imaging of the abdominal viscera. Noninvasive ultrasound liver fibrosis assessment is performed using Aaron ElastPQ point quantification shear wave elastography (pSWE) with a C5-2 MHz transducer. Multiple elastography samples are obtained. FINDINGS: PANCREAS: The visualized pancreatic head and body are normal in appearance. The remainder of the pancreas is obscured from visualization by the overlying bowel gas. ABDOMINAL AORTA: No aortic aneurysm is seen. INFERIOR VENA CAVA: Visualized portions are normal. LIVER: The liver demonstrates normal size, contour and echogenicity. No focal lesion or intrahepatic biliary duct dilatation. The right lobe measures 16 cm in length. The left lobe measures 8.5 cm in length. The main portal vein is patent with normal direction flow and a continuous venous waveform. Shear wave liver elastography median stiffness is 1.3 m/s (reference: normal median stiffness is 1.3 m/s or less). IQR/median stiffness to assess sampling precision is 0.12 (reference: good quality data set is IQR/median stiffness of 0.15 or less). GALLBLADDER: The gallbladder is physiologically distended without evidence of stones, sludge, polyps, wall thickening or pericholecystic fluid. COMMON BILE DUCT: Normal in caliber measuring 2 mm in diameter. RIGHT KIDNEY: No hydronephrosis. No renal calculi or focal parenchymal lesions. The kidney measures 11.6 cm in maximum dimension. LEFT KIDNEY: No hydronephrosis. No renal calculi or focal parenchymal lesions. The kidney measures 11.2 cm in maximum dimension. SPLEEN: Unremarkable. The spleen measures 11 cm in maximum dimension. FREE FLUID: None seen. US/US abdomen comp w elastography IMPRESSION: 1. Unremarkable abdomen ultrasound. 2. Liver elastography: Measurements are consistent with a high probability of normal liver stiffness. A quality study was adequate. REFERENCE: Society of Radiologists in Ultrasound Liver Stiffness Thresholds (2020): LIVER STIFFNESS THRESHOLDS: *Liver Stiffness equal or less than 1.3 m/s: High probability of being normal. *Liver Stiffness less than 1.7 m/s: In the absence of other known clinical signs, rules out compensated advanced chronic liver disease. *Liver Stiffness 1.7-2.1 m/s: Suggestive of compensated advanced chronic liver disease but need further test for confirmation. *Liver Stiffness over 2.1 m/s: Rules in compensated advanced chronic liver disease. *Liver Stiffness over 2.4 m/s: Suggestive of clinically significant portal hypertension. QUALITY OF DATA SET: *IQR/Median value equal or less than 0.15 implies a quality data set. *IQR/Median value over 0.15 implies a poor quality data set. SIGNIFICANT CHANGE FROM PRIOR EXAM: Significant change if liver stiffness measurement is 10% or greater from prior exam. OTHER CONSIDERATIONS: The stage of liver fibrosis may be overestimated in the setting of acute hepatitis, liver inflammation, elevated liver function tests, hepatic vascular congestion, obstructive cholestasis, non-fasting state, and infiltrative diseases such as amyloidosis and lymphoma. In some patients with NAFLD, the liver stiffness thresholds for compensated advanced chronic liver disease may be lower. In causes other than viral hepatitis and NAFLD, liver stiffness thresholds are not well established. Electronically signed by: Bossman Nguyen MD 12/24/2024 10:17 AM EDT
--- OUTSIDE RECORDS SUMMARY | 2024-12-24 11:44 | XMS_ITS | Clinical Summary ---
Author Organization [facility] ity Address [address] [place] [address] Care Team Providers Care Hyperbaric Technologist Name Role Phone Unavailable Primary Care Provider [...]
== END 2024-12-24 09:20 | disposition home or self-care (01) ==
LOC: HO.US 09:19
PROVIDERS: PCP Student in an Organized Health Care Education/Training Program; Visit Provider Surgery
DX: E66.01 Morbid (severe) obesity due to excess calories (principal); I10 Essential (primary) hypertension; G47.30 Sleep apnea, unspecified
CPT/HCPCS: 76700; 76981

== ENCOUNTER → 2024-12-24 09:21 | Outpatient (BNV) | payer OTHER, SELFPAY | PROVIDERS: PCP Student in an Organized Health Care Education/Training Program; Visit Provider Radiology Diagnostic Radiology | DX: E66.01 Morbid (severe) obesity due to excess calories (principal); Z68.42 Body mass index [BMI] 45.0-49.9, adult | CPT/HCPCS: 76700 ==

== ENCOUNTER 2025-01-08 08:15 | Outpatient (AMB) | payer OTHER, SELFPAY ==
--- OUTSIDE RECORDS SUMMARY | 2025-01-08 08:40 | XMS_ITS | Clinical Summary ---
Author Organization [facility] ity Address [address] [place] [address] Care Team Providers Care Supervisor Dairy Sanitation Name Role Phone Unavailable Primary Care Provider [...] of 3 - 19+ 3-dose series) 2009 HPV Vaccines (1 - 3-dose SCD M series) 2017 Depression Screening 04/10/2024 COVID-19 Vaccine (1 - 2023-2 5 season) 2024 Influenza Vaccine (#1) 2024 RSV Immunization Adult Patie nts (1 - 1-dose 75+ series) 2065 HIB Vaccines Aged Out No longer eligi [...]
--- NOTE | 2025-01-08 08:45 | A.OFFVIS_ITS ---
VS Expanded 01/08/25 08:59 Height 5 ft 10 in Weight 300 lb 3 oz BMI 43.1 Body Fat % 46 Body Fat Mass 138.1 Fat Free Mass 162.1 Visceral Fat Rating 25 Body Water % 38.9 Body Water Mass 116.8 Basal Metabolic Rate/Score 2,500 Intake Visit Reasons: TV Pre Op LSG 01/21/25 Allergies No Known Allergies Allergy (Verified 01/08/25 08:45) Medication List - Last Reconciled 01/08/25 by Angel Pena MD amlodipine 10 mg PO DAILY cholecalciferol (vitamin D3) 125 mcg PO DAILY mecobalamin (vitamin B12) 1,000 mcg sublingual DAILY ondansetron 4 mg PO Q12H pantoprazole 40 mg PO DAILY polyethylene glycol 3350 17 grams PO DAILY sucralfate 10 mL PO BID HPI HPI TV Pre Op LSG 01/21/25: Details: Start time: 8.44am, End time: 9.04am ?I spent 15 minutes speaking with the patient on the phone plus an additional 5 minutes reviewing and updating records for a total of 20 minutes HPI Comments Details: Overall weight loss: 22.7lbs, or 7%TBWL Is doing one KPT360 with one scoop and one with half scoop in almond milk, one Fir Crunch bar and one meal (11 forks each) PFSH Medical History Hypertension Sleep apnea treated with continuous positive airway pressure (CPAP) Morbid obesity Surgical History Hx of oral surgery Hx of appendectomy Family History Mother Diabetes Arthritis Father No problems noted. Social History Are you a primary resident care coordinator to a significant other at home: No Do you presently have visiting nurse or other home services: No Alcohol intake: never Patient Tobacco Use Status: Former Tobacco user Tobacco use type: Cigarette Telehealth Telehealth Telehealth Platform: Telephone Location of provider rendering services: practice address Location of patient: address on file Telehealth method: voice only Patient verbally consented to treatment: Yes Patient verbally consented to billing insurance company: Yes Patient informed of any privacy concerns related to visit: Yes Minutes spent on Phone/Video with Pt.: 20 Assessment & Plan Assessment & Plan (1) Morbid obesity: Code(s): E66.01 - Morbid (severe) obesity due to excess calories Category: Medical Plan: 1. Plan for lap sleeve gastrectomy including upper GI endoscopy. All tests has been completed and reviewed and the patient is cleared for the surgery. ?If diaphragmatic or ventral hernias are present at time of surgery, these will be repaired laparoscopically as well. Risks and complications were discussed in detail including possible conversion to an open procedure, anastomotic leak, bleeding requiring transfusion, small bowel obstruction, , DVT and pulmonary embolism, cardiac, or pulmonary complications, as senior living complications such as anastomotic ulcer, insufficient weight loss and vitamin deficiencies. I emphasized the importance of close follow-up, adherence to instructions and good communication. So far he has proven to be an excellent communicator and very compliant with all our directions accomplishing a great weight loss. I believe that he is an excellent candidate and he is ready. 2. Preop prescriptions were provided and explained the purpose of each one. Need to be purchased preop. Start Pantoprazole now as you get it from the pharmacy, 1 pill per day. Sucralfate and Zofran are for after surgery as needed. 3. Bowel prep: please do 7 packets ?of Miralax mixing each one with a an 8oz glass of water, crystal light, gatorade zero, or propel ?on 01/19/25 and the same amount on 01/20/25. The Miralax you begin with one packet at a time in 8oz water or crystal light, gatorade zero, or propel ?as early in the day as you can and you do them back to back until you finish them. Continue the protein shakes during ?the bowel prep. 4. Needs to purchase 1oz medicine cups . 5. Needs to purchase Children's liquid Tylenol for postop pain control. 6. Avoid aspirin, motrin, Advil, Aleve, Meloxicam, Excedrin, Ibuprofen, Naproxyn. Tylenol is OK. 7. He needs to purchase the Celebrate multivitamins from the hospital's gift shop, chewable or pills whatever you prefer. 8. Will do basic preop blood work-up any day between Monday01/13/25 and Monday01/17/25 fasting for 12 hours and is scheduled to see the Anesthesiologist prior to the day of surgery. 9. Importance of adherence to postop folllow-up and recommendations was underscored and he understands that. 10. Continue to avoid food and bars and continue with a Premier protein shake 8oz (and not the whole bottle at 6am-8am, one ISO-100 (1/2 scoop in 8oz almond milk) at 9am-11am, another 8oz Premier shake at 12pm-2pm, another ISO-100 (1/2 scoop in 8oz almond milk) at 3pm-5pm, another 8oz Premier shake at 6pm-8pm and one more ISO-100 protein shake with HALF scoop in 8oz of almond milk at 9pm-11pm 11. No soups, broths or V8 12. The patient's?medical?history has been reviewed and they are considered low risk for post op DVT and therefore DVT prophylaxis is not considered necessary. Travel after surgery was reviewed. The patient has not disclosed any travel plans during the first 30 days after surgery and they have been advised that within the first 30 days after surgery any bus, plane, train or car travel over 2 hours in duration is contraindicated due to the possibility of developing blood clots from immobility. Any travel, needs to include periods of ambulation of 10 minutes in duration every 2 hours.? Patient was instructed to discuss any plans for travel during this period with their bariatric surgeon.? 13. Use your CPAP daily and bring it to the hospital with your mask 14. As of tomorrow, please check your blood pressure daily in the morning. If your blood pressure is: Below 120/70: do not take the Amlodipine 121/71 to 135/85: take HALF Amlodipine Over 136/86: take the whole Amlodipine 15. Please take at the day of surgery the following medications: Amlodipine if the blood pressure that day is high enough to justify it based on the parameters at the previous bullet point. 16. Absolutely no smoking or vaping, or marijuana until the surgery and for at least the first 4 weeks. Only nicotine patches are allowed. 17. Send me weight measurements on Monday01/13/25, Monday01/18/25 and then on Monday01/21/25 the day of surgery before you go to the hospital. 18. Avoid any steroids by mouth for any reason. Let me know if someone prescribes them to you 19. These instructions supersede anything else you read in the handbook, anything you watched in videos or classes or you were told by any other provider. If there is any conflict, you follow the above instructions and nothing else. Orders: Orders C Reactive Protein Today E66.01 - Morbid (severe) obesity due to excess calories, I10 - Essential (primary) hypertension Lipid Panel Today E66.01 - Morbid (severe) obesity due to excess calories, I10 - Essential (primary) hypertension Hemoglobin A1c Today E66.01 - Morbid (severe) obesity due to excess calories, I10 - Essential (primary) hypertension Type and Screen Today E66.01 - Morbid (severe) obesity due to excess calories, I10 - Essential (primary) hypertension TSH reflex Free T4 Today E66.01 - Morbid (severe) obesity due to excess calories, I10 - Essential (primary) hypertension Insulin Today E66.01 - Morbid (severe) obesity due to excess calories, I10 - Essential (primary) hypertension Complete Blood Count Auto Diff Today E66.01 - Morbid (severe) obesity due to excess calories, I10 - Essential (primary) hypertension Comprehensive Met. Panel Today E66.01 - Morbid (severe) obesity due to excess calories, I10 - Essential (primary) hypertension Partial Thromboplastin Time Today E66.01 - Morbid (severe) obesity due to excess calories, I10 - Essential (primary) hypertension Prothrombin Time INR Today E66.01 - Morbid (severe) obesity due to excess calories, I10 - Essential (primary) hypertension Medications: New sucralfate 10 mL PO BID 600 mL 2RF K21.9 - Gastro-esophageal reflux disease without esophagitis pantoprazole 40 mg PO DAILY 90 tabs 0RF K21.9 - Gastro-esophageal reflux disease without esophagitis ondansetron Only take one every 12 hours as needed if you have nausea 4 mg PO Q12H 20 tabs 0RF nausea and vomiting R11.0 - Nausea polyethylene glycol 3350 Mix each measuring cup with 8oz of water, Crystal light, or Gatorade zero, or Propel and do 7 measuring cups on 01/19/25 and another 7 measuring cups on 01/20/25 17 grams PO DAILY 238 grams 0RF Z01.818 - Encounter for other p reprocedural examination
[2025-01-08 08:59] VITALS: BMI 43.1
== END 2025-01-08 09:05 | disposition home or self-care (01) ==
LOC: HO.HBS 08:15
PROVIDERS: PCP Student in an Organized Health Care Education/Training Program; Visit Provider Surgery
DX: E66.01 Morbid (severe) obesity due to excess calories (principal)
CPT/HCPCS: 99213

== ENCOUNTER 2025-01-21 06:30 | Inpatient (IN) | payer OTHER, SELFPAY ==
[2025-01-14 12:56] VITALS: BMI 42.6
[2025-01-16 08:32] LABS: MANUAL DIFF FLAG NO
[2025-01-16 09:04] LABS: Hematocrit 42.6 % (42.0-52.0); Hemoglobin 13.7 g/dl (14.0-18.0); Imm Gran Abs Auto 0.04 X10*3/uL (0.00-0.03); Imm Gran Pct Auto 0.4 % (0.0-0.4); Lymphocytes Absolute Auto 2.6 X10*3/uL (1.2-4.9); Mean Corpuscular HGB Conc 32.2 g/dl (31.0-36.0); Mean Corpuscular Hemoglobin 26.3 pg (27.0-33.0); Mean Corpuscular Volume 81.8 fL (80.0-98.0); NRBC Abs Auto 0.000 X10*3/uL (0.0-0.012); NRBC Pct Auto 0.0 /100WBC (0.0-0.2); Platelet Count 319 X10*3/uL (160-400); Red Blood Count 5.21 X10*6/uL (4.60-5.80); White Blood Count 9.0 X10*3/uL (4.8-10.8)
[2025-01-16 09:09] LABS: INTERNATIONAL NORM RATIO 1.0 (0.9-1.1); Prothrombin Time 11.8 SEC (10.9-12.4)
[2025-01-16 09:11] LABS: Partial Thromboplastin Time 30.5 SEC (26.7-34.1)
[2025-01-16 09:12] LABS: Hemoglobin A1C 148.6615 umol/L; Total Hemoglobin (HGBA1C) 3396.6835 umol/L
[2025-01-16 09:49] LABS: Alanine Aminotransferase 52 U/L (0-40); Albumin Level 4.4 g/dL (3.5-5.0); Alkaline Phosphatase 111 U/L (39-117); Anion Gap 12 (12-20); Aspartate Amino Transferase 33 U/L (5-37); Blood Urea Nitrogen 10 mg/dL (9-16); Calcium 9.5 mg/dL (8.4-10.2); Carbon Dioxide 24 mmol/L (22-29); Chloride 109 mmol/L (96-108); Cholesterol 186 mg/dL (<200); Creatinine Clr Calc Pharmacy 159.7; Estimated Glomerular Filt Rate > 60; HDL Cholesterol 23 mg/dL (>40); Potassium 4.1 mmol/L (3.3-5.1); Sodium 141 mmol/L (135-145); Total Protein 7.9 g/dL (6.5-8.0); Triglycerides 368 mg/dL (<150)
[2025-01-21] VITALS (16 sets, daily range): BP systolic 115–134; BP diastolic 60–81; PULSE 70–91; RESP 13–23; TEMP 36.6–37; O2SAT 94–99; BMI 43.0
[2025-01-21] MEDS: Lactated Ringers 1,000 ML 999 ML IV (06:46)
[2025-01-21] MEDS: Aprepitant 32 MG/4.4 ML VIAL IVPUSH (06:51)
--- OUTSIDE RECORDS SUMMARY | 2025-01-21 06:55 | XMS_ITS | Clinical Summary ---
Author Organization [facility] ity Address [address] [place] [address] Care Team Providers Care Steeple Jack Name Role Phone Unavailable Primary Care Provider [...]
--- NOTE | 2025-01-21 07:10 | P.CONAN_ITS ---
Documented by User: Kaitlin Broussard NP 01/16/25 14:05 HPI - Anesthesia Eval Consult details Narrative: 34yo M for Gastrectomy Sleeve,EGD,possible Diaphragmatic Hernia,possible Ventral Hernia,possible Open BMI 42.6 PMFSH Active Problems Active Problems: All Active Problems Vitamin D deficiency (Acute) Hypertension (Acute) Sleep apnea treated with continuous positive airway pressure (CPAP) (Acute) Morbid obesity (Acute) Past Medical History Medical History Prediabetes Hypertension Sleep apnea treated with continuous positive airway pressure (CPAP) Morbid obesity Family History Family History Mother Diabetes Arthritis Father No problems noted. Family history of problems with anesthesia: No Surgical History Surgical History History of esophagogastroduodenoscopy (EGD) Hx of varicose vein ligation Hx of oral surgery Hx of appendectomy History of Problems with Anesthesia: No Social History Social History Are you a primary health care sanitary technician to a significant other at home: No Do you presently have visiting nurse or other home services: No Alcohol intake: never Patient Tobacco Use Status: Former Tobacco user Tobacco use type: Cigarette Use of substances other than those prescribed or required for medical reasons: No Are you DNR?: No Advance Directives: No Advance Directives Information Provided: No Advance Directives on File: No Poor oral hygiene: Yes Meds Allergies Allergy/AdvReac Type Severity Reaction Status Date / Time No Known Allergies Allergy Verified 01/21/25 06:37 Home Medications ?Medication ?Instructions ?Recorded ?Confirmed ?Last Taken ?Type amlodipine 10 mg tablet 10 mg PO DAILY 09/25/2401/0801/20/25 History Exam Height,Weight and Vital Signs: Height 5 ft 10 in Weight 134.717 kg Pertinent Lab Results Pertinent Lab Results: Laboratory Tests 01/16/25 08:25 WBC 9.0 RBC 5.21 Hgb 13.7 L Hct 42.6 MCV 81.8 MCH 26.3 L MCHC 32.2 RDW 13.6 Plt Count 319 MPV 9.1 L Immature Gran % (Auto) 0.4 Neut % (Auto) 62.6 Lymph % (Auto) 29.1 Kaufman % (Auto) 5.8 Eos % (Auto) 1.7 Baso % (Auto) 0.4 Lymph # (Auto) 2.6 Kaufman # (Auto) 0.5 Eos # (Auto) 0.2 Baso # (Auto) 0.0 Abs Immat Gran (auto) 0.04 H Absolute Neuts (auto) 5.6 Absolute Nucleated RBC 0.000 Nucleated RBC % (auto) 0.0 PT 11.8 INR 1.0 APTT 30.5 Sodium 141 Potassium 4.1 Chloride 109 H Carbon Dioxide 24 Anion Gap 12 BUN 10 Creatinine 0.90 Estim Creat Clear Calc 159.7 Estimated GFR > 60 Random Glucose 126 H Estimat Average Glucose 131 Hemoglobin A1c % 6.2 H Insulin Level 15 Calcium 9.5 Total Bilirubin 0.4 AST 33 ALT 52 H Alkaline Phosphatase 111 C-Reactive Protein 0.82 H Total Protein 7.9 Albumin 4.4 Triglycerides 368 H Cholesterol 186 LDL Cholesterol, Calc 90 HDL Cholesterol 23 L TSH 1.79 Blood Type O Positive Antibody Screen NEGATIVE Narrative Narrative: EKG 10/2024 Vent. Rate : 53 BPM Atrial Rate : 53 BPM P-R Int : 132 ms QRS Dur : 100 ms QT Int : 458 ms P-R-T Axes : 16 -11 4 degrees QTcB Int : 429 ms Sinus bradycardia Minimal voltage criteria for LVH, may be normal variant ( R in aVL ) Borderline ECG No previous ECGs available Assessment and Plan Assessment Anesthesia Assessment: Chart Reviewed Final Anesthetic Review Family History of Problems with Anesthesia: No History of Problems with Anesthesia: No Documented by User: Regina Tadeo DO 01/21/25 07:27 [facility] Past Medical History Medical History Prediabetes Hypertension Sleep apnea treated with continuous positive airway pressure (CPAP) Morbid obesity Family History Family History Mother Diabetes Arthritis Father No problems noted. Family history of problems with anesthesia: No Surgical History Surgical History History of esophagogastroduodenoscopy (EGD) Hx of varicose vein ligation Hx of oral surgery Hx of appendectomy History of Problems with Anesthesia: No Social History Social History Are you a primary health care sanitary technician to a significant other at home: No Do you presently have visiting nurse or other home services: No Alcohol intake: never Patient Tobacco Use Status: Former Tobacco user Tobacco use type: Cigarette Use of substances other than those prescribed or required for medical reasons: No Are you DNR?: No Advance Directives: No Advance Directives Information Provided: No Advance Directives on File: No Poor oral hygiene: Yes Meds Allergies Allergy/AdvReac Type Severity Reaction Status Date / Time No Known Allergies Allergy Verified 01/21/25 06:37 Home Medications ?Medication ?Instructions ?Recorded ?Confirmed ?Last Taken ?Type amlodipine 10 mg tablet 10 mg PO DAILY 09/25/2401/0801/20/25 History Exam Exam Date and Time: 01/21/25 0710 Height,Weight and Vital Signs: Height 5 ft 10 in Weight 134.717 kg Vital Signs Temperature 98.1 F 01/21/25 06:30 Pulse Rate 73 01/21/25 06:30 Respiratory Rate 17 01/21/25 06:30 Blood Pressure 128/78 01/21/25 06:30 Pulse Oximetry 96 01/21/25 06:30 Oxygen Delivery Method Room Air 01/21/25 06:30 Temperature 98.1 F 01/21/25 06:30 Pulse Rate 73 01/21/25 06:30 Respiratory Rate 17 01/21/25 06:30 Blood Pressure 128/78 01/21/25 06:30 Pulse Oximetry 96 01/21/25 06:30 Oxygen Delivery Method Room Air 01/21/25 06:30 Airway Mallampati Class: II TM Dist: >3cm Neck ROM: Full Loose/Missing/Broken Teeth: No (patient denies any loose or broken teeth) Heart: S1S2 Lungs: CTAB Assessment and Plan Assessment Anesthesia Assessment: Anesthesia Plan Discussed and Chart Reviewed Final Anesthetic Review Family History of Problems with Anesthesia: No History of Problems with Anesthesia: No NPO: Yes ASA Class: III Final Preanesthetic Review: No Changes in Pt Med Stat, Meds/Allgs Chart Reviewed, Consent Obtained/Reviewed and Anes Risks/Benef Reviewed Patient Risk: Low Procedure Risk: Intermediate Anesthetic Plan Anesthetic Plan: GA and Agree w/ Assess. and Plan Disposition: Standard PACU
--- NOTE | 2025-01-21 07:15 | PHA.MEDREC ---
Pharmacy Consult ? Medication Reconciliation Pharmacy has reviewed the medication reconciliation completed by nursing.
[2025-01-21] MEDS: Lactated Ringers 1,000 ML 100 ML IVCONT ×3 (07:37→21:57)
--- NOTE | 2025-01-21 07:40 | MHC.SHP ---
Pre-Procedural Eval Section A - 24 Hr Update-Section A only Date of Service: 01/21/25 The patient is an INPATIENT: Yes The patient has been examined within 24 hours of the surgical procedure. The History & Physical has been completed within 30 days and I have reviewed it.: No Section B - Complete if H&P > 30 days Chief Complaint: Obesity Relevant Family History (Specify if Yes): No Relevant Social History: None Present Medications: None Medical History: No relevant PMH History of Previous Operations: No relevant previous surgery Allergies: Allergies Allergy/AdvReac Type Severity Reaction Status Date / Time No Known Allergies Allergy Verified 01/21/25 06:37 Review of Systems Sugical H&P ROS: Negative: Constitution, Cardiovascular, Respiratory, Neurological, Psychiatric, Hem-Onc, Allergic/Immunologic, Gastrointestinal, Genitourinary, Musculoskeletal, Integumentary, Endocrine and Eyes/Ears/Nose/Throat Exam Surgical H&P Exam: Normal: HEENT, Normal: Heart, Normal: Lungs, Normal: Extremities, Normal: Abdomen, Normal: Skin and Normal: Neurological Plan Diagnosis/Plan: Unchanged I have reviewed the history and physical and performed a pertinent physical examination on my patient. No changes have occurred unless specified. Time Spent With Patient Time: Total time managing care of this patient today ____ minutes.
--- NOTE | 2025-01-21 07:43 | P.BOP_ITS ---
Brief Operative Note Date of Service: 01/21/25 Pre-op diagnosis: Morbid obesity with comorbidities (see below) Post-op diagnosis: same Procedure: INITIAL PATIENT BMI ON PRESENTATION AT OUR OFFICE: 46.3 kg/m2 LAST BMI BEFORE SURGERY: 43.5 kg/m2 COMORBIDITIES: sleep apnea on CPAP, hypertension ?The patient presented to the Weight Management Program with significant obesity that was negatively impacting the patient's comorbidities as listed above.? The program is a phased program with a special focus on preoperative medical weight management to promote substantial weight loss and prepare the patients for the second phase of the program: bariatric surgery. The patient participated in an intensive weekly lifestyle ?intervention and exercise program during which the patient ?has lost between the initial office visit and the last preoperative visit 19.6 lbs, or 6.1% of initial actual body weight. It was deemed appropriate for the patient to now have bariatric surgery. In light of the current Covid-19 pandemic and the well documented strong association of obesity and increased risk of worse outcomes if infected with Covid-19 (REFERENCES: https://pubmed.ncbi.nlm.nih.gov/43474555/ ,? https://pubmed. ncbi.nlm.nih.gov/12783364/ ), any delay in undergoing bariatric surgery may lead to the patient's worsening health condition and increased?risk of more severe Covid-19 disease if infected. In addition a recent?study from [facility] published in [employer] on 04/05/2021 ([email or web address]) found that, among patients with obesity, substantial weight loss achieved with surgery was associated with improved outcomes of COVID-19 infection. The findings suggest that obesity can be a modifiable risk factor for the severity of COVID-19 infection. In addition, the patient met the BMI-criteria for bariatric surgery based on the BMI on initial presentation. The patient should not be penalized for achieving such weight loss because ?it is not sustainable long-term without surgical intervention and it was achieved in preparation for bariatric surgery ?under my direction and based on my published research (f [email or web address]).[email or web address] and? https://www.soard.org/article/[email or web address](10)82403-X/pdf ) ?that a 10% preoperative weight loss improves long-term weight loss after surgery and reduces perioperative complications.? Insurance carriers such as [facility] have endorsed my recommendations ?and have included in their policies criteria to include a 10% preoperative weight loss requirement. PROCEDURE: Esophago-gastroscopy, laparoscopic lysis of adhesions, laparoscopic sleeve gastrectomy and laparoscopic gastropexy INDICATIONS: This is a 34 year-old male who was electively scheduled for laparoscopic, possibly open sleeve gastrectomy. The risks and complications of the procedure were discussed with the patient in advance, particularly the possibility of ; pulmonary embolism; staple line leak; bleeding; GERD; cardiac, pulmonary, or renal complications; as well as long-term problems such as insufficient weight loss, vitamin deficiency, strictures, or ulcers. The patient understood all the risks, and was in agreement to proceed with surgery. DESCRIPTION OF PROCEDURE: After informed consent was obtained from the patient, the patient was given preoperative antibiotics, and was transferred to the operating room. After successful induction of general anesthesia, pneumatic compression devices were placed on both lower extremities. An upper endoscopy was performed next. The oropharynx and esophagus appeared to be within normal limits. There was no diaphragmatic hernia present. The stomach was entered. Then after all fluid and air were suctioned and the stomach was fully decompressed, the scope was withdrawn and secured in the mid esophagus. The patient was then prepped and draped in the usual sterile manner, and abdominal access was established at the right upper quadrant with the Jia technique. A 12 mm blunt port was inserted, and the abdomen was insufflated with CO2 to a pressure of 15 mmHg. Under direct visualization, additional ports were placed, specifically two 5 mm Versi-step ports to the left upper quadrant, and a 5 mm Versi-Step port to the right upper quadrant. 1% lidocaine plain was used to infiltrate all port sites as well as all fascia defects. Following that, the patient was placed in a steep reverse Trendelenburg position. An additional 5 mm port was placed to the right flank for the Mediflex retractor that was used to retract the left lobe of the liver. The gastro-esophageal fat pad was opened with the ultrasonic device (Thbobbyerbelinn, Olympus) and the anterior esophagus and hiatus were exposed. The angle of His was opened with the ultrasonic device the fundus of the stomach from any diaphragmatic and splenic attachments. I then opened the gastrocolic ligament between the transverse colon and the greater curvature of the stomach with the ultrasonic device to enter the lesser sac and facilitate the ligation of the short gastric vessels. I started at a mid-point along the greater curvature and using the Thunderbeat, all short gastric vessels were divided all the way to the angle of His until the left sin was completely dissected at its entirety. I then divided the gastro-colic ligament distally to a distance of about 3-4 cm proximal to the pylorus. The stomach was then divided transversely with one Endo KARTHIKEYAN-45 purple and four KARTHIKEYAN-60 articulating orange loads using the SprainGo stapler and loads. Every effort was made that the gastric sleeve had a tubular shape and an even caliber throughout. Once the sleeve resection was completed, the staple line of the gastric sleeve was reinforced with Hemoclips. The resected stomach was retrieved without difficulty from the Jia port. A gastropexy was then performed in order to prevent postoperative GERD and partial gastric volvulus. Several interrupted 2.0 Surgidac sutures were placed between the sleeve's staple line and the previously divided greater omentum and gastro-colic ligament using the Endo-Stitch device. ?An upper endoscopy was performed. There was no narrowing at the GE junction. The scope was easily advanced all the way to the pylorus which was clearly visualized. There was no narrowing anywhere and the sleeve's caliber was even throughout. The sleeve's staple line was inspected and there was no evidence of ischemia, bleeding or dehiscence. At that point the gastroscope was withdrawn from the patient?s mouth while we were decompressing the bowel and the stomach from any remaining air. I looked into the lesser sac to see how the sleeve was situating and it was situating well. There was no bleeding from the staple line, spleen, or short gastric vessels. The Mediflex retractor was removed, and the undersurface of the liver was inspected and there was no bleeding. The patient was placed in supine position. I closed the fascial defect of the 12 mm port site with a figure of eight #1 Polysorb suture. Then 30cc Ropivacaine plain with 10 mg of Dexamethasone were used to infiltrate the fascial closure as well as all skin incisions. At this point, the abdomen was deflated, all ports were removed under direct vision, and no bleeding was noted from any of the port sites. The skin incisions were irrigated with saline and were closed with 4-0 absorbable monofilament sutures. Steri-Strips and OpSites were used to cover all incisions. The patient was extubated and was transferred in stable condition to the recovery room for further care. I was present and performed all durham parts of the procedure. Ama Jelanimitesh was the miller first. There were no residents to assist with this case. Stefan Pena MD, PhD, FACS Surgeon: Angel Pena MD Anesthesia: GETA, local and other (TAP block) Was an Adult Literacy Teacher used for this Procedure?: No Adult Literacy Teacher: Marylu Alex Estimated blood loss (mL): 10 IV fluids (mL): 2,500 Urine output (mL): 0 (No Paula to record output) Pathology: other (1) Stomach, 2) Gastro-esophageal fat pad) Condition: stable Disposition: PACU
--- NOTE | 2025-01-21 07:46 | PM.PNGS ---
Subjective Subjective Date of Service: 01/22/25 Interval history: Feels well. Mild incisional pain. He is tolerating phase 1 bariatric diet Physical Exam Vital Signs: Vital Signs: Last Vital Signs Temp 98.1 F 01/21/25 06:30 Pulse 73 01/21/25 06:30 Resp 17 01/21/25 06:30 BP 128/78 01/21/25 06:30 Pulse Ox 96 01/21/25 06:30 O2 Del Method Room Air 01/21/25 06:30 BMI result Body Mass Index 42.6 GI: Inspection: Yes normal to inspection, Yes incision (clean, dry and intact) and Yes obesity Palpation (GI): Soft to palpation Extrem: Right lower extremity: normal to inspection (no calf tenderness) Left lower extremity: normal to inspection (no calf tenderness) Objective Data Active Medications Haloperidol Lactate (Haloperidol Lactate 5 Mg/Ml Vial) 1 mg IVPUSH ONCE PRN PRN Reason: intractable nausea Stop: 01/21/25 13:27 Hydromorphone HCl (Hydromorphone Hcl 0.5 Mg/0.5 Ml Syringe) 0.5 mg IVPUSH Q5M PRN PRN Reason: Pain, Moderate to Severe (Pain Scale 4-10) Stop: 01/21/25 13:27 Lactated Ringer's (Lr) 1,000 mls @ 100 mls/hr IVCONT .Q10H [facility] Stop: 01/21/25 10:29 Last Admin: 01/21/25 07:37 Dose: 100 mls/hr Documented By: DANIAL Lactated Ringer's (Lr) 1,000 mls @ 999 mls/hr IV .Q1H1M [facility] Stop: 01/21/25 08:30 Last Admin: 01/21/25 06:46 Dose: 999 mls/hr Documented By: DANIAL Naloxone HCl (Naloxone Hcl 0.4 Mg/Ml Vial) 0.04 mg IVPUSH Q5M PRN PRN Reason: Excessive sedation or RR < 8 Labs 01/22/25 05:59 01/22/25 05:59 Procedures Date of Service Date of Service: 01/22/25 Progress Note: A&P Assessment and plan (1) Morbid obesity: Status: Acute Assessment and Plan: s/p laparoscopic sleeve gastrectomy, lysis of adhesions and gastropexy Doing well Will check am labs and if OK the patient will be discharged home (2) Sleep apnea treated with continuous positive airway pressure (CPAP): Status: Acute (3) Hypertension: Status: Acute (4) S/P laparoscopic sleeve gastrectomy: Status: Acute Time Spent With Patient Time: Total time managing care of this patient today ____ minutes. Quality Stroke Does the patient have a stroke diagnosis?: No VTE Prior VTE?: No VTE Risk Level:: Surgical - moderate VTE Device Contraindication: N/A - Device Ordered VTE Drug Contraindication: Treatment Not Indicated
--- NOTE | 2025-01-21 09:54 | P.DS_ITS ---
DS: Providers Provider Date of Service: 01/22/25 Date of admission: 01/21/25 06:30 Date of discharge: 01/22/25 Primary care physician: Omar Sharpe MD DS: Diagnosis Discharge Diagnosis (1) Morbid obesity: Status: Acute (2) Sleep apnea treated with continuous positive airway pressure (CPAP): Status: Acute (3) Hypertension: Status: Acute DS: Summary Hospital Course Hospital Course: ADMITTING DIAGNOSIS: morbid obesity, HTN, YANELY on CPAP DISCHARGE DIAGNOSIS: same, s/p laparoscopic sleeve gastrectomy and gastropexy PAST SURGICAL HISTORY:? Hx of oral surgery Hx of appendectomy PROCEDURE: upper endoscopy, laparoscopic sleeve gastrectomy and gastropexy DISCHARGE SUMMARY: History of Present Illness: The patient is a?34 year-old man with a BMI of?43 kg/m2 and associated co- morbidities as described above. The patient had extensive work-up, lost 23.4 lbs preoperatively and was electively scheduled for laparoscopic, possible open sleeve gastrectomy and gastropexy. Risks and complications of the surgery were discussed with the patient in advance, particularly the possibility of , pulmonary embolism, anastomotic leak, bleeding, bowel injury, GERD, cardiac, renal or pulmonary complications. The patient understood all the risks and was in agreement with the surgical plan. Hospital Course: The patient underwent an uneventful laparoscopic sleeve gastrectomy with gastropexy on the day of admission. Postoperatively, the patient was transferred to the surgical floor. The patient received IV acetaminophen and IV Dilaudid for pain control. Patient was started on bariatric phase 1 diet POD #0. On postoperative day one, the patient was feeling well without nausea, vomiting, fevers, or tachycardia. The patient had some mild incisional pain and the abdomen was soft.? ? On the morning of postoperative day one, the patient was continued on 1 ounce of water or ice every half hour. During the day, the patient did fairly well, h aving some incisional pain, but able to ambulate adequately and to tolerate liquids well. Since the patient is doing well, we decided that the patient was ready to be discharged. The patient was given instructions to follow-up in office next week and to call the office for any fever over 101, persistent abdominal pain, nausea, vomiting, GERD, symptoms of DVT such as calf tenderness, or leg swelli ng, or pulmonary embolism such as chest pain or shortness of breath.? The patient was also instructed to drink 40-60 ounces of liquids per day using the 1-ounce cups. The patient had been given prescriptions for Tylenol for pain, Zofran prn for nausea, and pantoprazole and carafate previously. The patient was encouraged to ambulate and use the incentive spirometer. The patient was allowed to shower, but no baths, and encouraged to stay active at home. All of these instructions were given to the patient personally. All questions were answered and the patient understood all instructions, the instructions were also given to the patient in print. Time Attestation Discharge Coordination Time (in mins): 30 Quality: Safe Use of Opioids Does Pt have an Active Cancer Diagnosis on the Problem List?: No Quality: Stroke Does the patient have a stroke diagnosis?: No Physical Exam Vital Signs: Vital Signs: Last Vital Signs Temp 98.1 F 01/21/25 09:51 Pulse 72 01/21/25 09:51 Resp 18 01/21/25 09:51 BP 123/63 01/21/25 09:51 Pulse Ox 98 01/21/25 09:51 O2 Del Method Simple Mask 01/21/25 09:51 O2 Flow Rate 6 01/21/25 09:51 BMI result Body Mass Index 43.0 DS: Data Data Completed and Pending Pending studies at discharge: Pending at discharge 01/21/25 09:17 Surgical [PTH] Routine Discharge Plan Discharge Anticipated Discharge Date/Time: 01/22/25 10:00 Patient Disposition: Home, Self-Care Discharge Diagnosis: s/p laparoscopic sleeve gastrectomy with gastropexy Referrals: Omar Newton MD [Primary Care Provider, Pediatric Surgery] - 1 Week Discharge Medications: Continued sucralfate 100 mg/mL suspension 10 ml PO BID Qty: 600 2RF Patient Comments: has not started this medication yet pantoprazole 40 mg tablet,delayed release (DR/EC) 40 mg PO DAILY Qty: 90 0RF ondansetron 4 mg tablet,disintegrating 4 mg PO Q12H Qty: 20 0RF Rx Instructions: Only take one every 12 hours as needed if you have nausea Held amlodipine 10 mg tablet 10 mg PO DAILY Hold Instructions: Resume on 01/22/25. Only resume according to parameters given by Dr. Pena Discontinued cholecalciferol (vitamin D3) 125 mcg (5,000 unit) capsule 125 mcg PO DAILY Qty: 90 0RF mecobalamin (vitamin B12) 1,000 mcg tablet,disintegrating 1,000 mcg sublingual DAILY Qty: 90 0RF Rx Instructions: place tablet under tongue and allow to dissolve for at least30 secs before swallowing Discharge Orders: Discharge Order (Routine); Ordered 01/22/25 Ordered By: Marylu Alex Activity on Discharge: No heavy lifting Stand Alone Forms: Patient Portal Discharge page Print Language: Tuvaluan Care Plan Goals: weight loss Health Concerns: morbid obesity Plan of Treatment: No tub baths, sex or returning to work until discussed at first post op appointment. No alcohol, tobacco or illegal drug use. Continue to use incentive spirometer hourly while awake. Walk in home for 5- 10 minutes every 2 hours during the first week. Wear abdominal binder with activity. Follow all meal plan instructions from your bariatric surgeon. Review bariatric handbook and call with any questions. Discharge Instructions 1. Please call your doctor or come back to the emergency room should any new symptoms arise. 2. Activity: abstain from alcohol,? limited stair climbing, no bending, no driving, no exercise, no illicit substances, no lifting, no sex, no tub bath, no work. 4. Diet: follow your bariatric surgeon's recommendations for advancing diet. 5. Dressing Change/Wound Care: Your incisions are covered with waterproof dressings. You can shower with these and pat dry. Do not rub over dressings or incisions. If the area is tender, you may apply an ice pack for short intervals (no more than 20 minutes on, followed by at least 20 minutes off). Do not apply heat. Do not use creams, lotions, or topical antibiotics unless instructed to do so by your surgeon. 6. Call your doctor if: - Your temperature exceeds 101.5 F - You experience excessive pain or swelling - You have an unexpected reaction to medication - You have excessive bleeding - You experience continued vomiting/nausea - Your incision begins to separate - Your incision shows signs of infection such as increased redness, swelling, excessive pain, heat, or drainage (light blood or clear fluid is normal) General instructions: No lifting greater than 10 lbs for the next 6 weeks[address] within 24 hours of taking narcotic pain medications. If you do not move your bowels in the next 2 days, please take milk of magnesia over the counter. Please follow the post op diet and do not advance your diet until instructed by your surgeon or until you are seen in the office in about 1 week. Please walk around your home every hour or two to prevent blood clots from forming in your legs. You do not need to wake from sleeping to walk. Please sleep in a bed or couch to prevent kinking at the hips and knees. Please take your incentive spirometer (your lung laundry aid) home with you and use it for the next few days to prevent pneumonias. You may shower; no hot tubs, baths or swimming pools. Please make sure you are consuming 40-60 ounces of total fluids per day. Avoid all carbonation. Please call the office with any questions or concerns such as increasing abdominal pain, fever, chills, shortness of breath, chest pain, leg pain or swelling, or redness or drainage from your incisions. Do not hesitate to contact the office with any questions at . The patient's medical history has been reviewed and they are considered low risk for post op DVT and therefore DVT prophylaxis is not considered necessary. Travel after surgery was reviewed. The patient has not disclosed any travel plans during the first 30 days after surgery and they have been advised that within the first 30 days after surgery any bus, plane, train or car travel over 2 hours in duration is contraindicated due to the possibility of developing blood clots from immobility. Any travel, needs to include periods of ambulation of 10 minutes in duration every 2 hours.? The patient was instructed to discuss any plans for travel during this period with their bariatric surgeon. Assessment: s/p laparoscopic sleeve gastrectomy with gastropexy Discharge Date/Time: 01/22/25 16:22
[2025-01-21 10:15] LABS: Hematocrit 42.8 % (42.0-52.0); Hemoglobin 13.5 g/dl (14.0-18.0)
[2025-01-21 10:29] LABS: Anion Gap 14 (12-20); Blood Urea Nitrogen 16 mg/dL (9-16); Calcium 9.0 mg/dL (8.4-10.2); Carbon Dioxide 26 mmol/L (22-29); Chloride 102 mmol/L (96-108); Creatinine Clr Calc Pharmacy 127.8; Estimated Glomerular Filt Rate > 60; Potassium 4.4 mmol/L (3.3-5.1); Sodium 138 mmol/L (135-145)
[2025-01-21] MEDS: 0.9 % Sodium Chloride Flush 3 ML SYRINGE IVFLUSH (19:08)
[2025-01-22] VITALS: BP 130/67; PULSE 98; RESP 18; TEMP 36.4; O2SAT 95
[2025-01-22 03:34] VITALS: BP 118/55; PULSE 77; RESP 18; TEMP 36.3; O2SAT 97
[2025-01-22 06:24] LABS: MANUAL DIFF FLAG NO
[2025-01-22 06:30] LABS: Hematocrit 39.7 % (42.0-52.0); Hemoglobin 12.9 g/dl (14.0-18.0); Imm Gran Abs Auto 0.08 X10*3/uL (0.00-0.03); Imm Gran Pct Auto 0.6 % (0.0-0.4); Lymphocytes Absolute Auto 1.3 X10*3/uL (1.2-4.9); Mean Corpuscular HGB Conc 32.5 g/dl (31.0-36.0); Mean Corpuscular Hemoglobin 26.2 pg (27.0-33.0); Mean Corpuscular Volume 80.5 fL (80.0-98.0); NRBC Abs Auto 0.000 X10*3/uL (0.0-0.012); NRBC Pct Auto 0.0 /100WBC (0.0-0.2); Platelet Count 311 X10*3/uL (160-400); Red Blood Count 4.93 X10*6/uL (4.60-5.80); White Blood Count 14.2 X10*3/uL (4.8-10.8)
[2025-01-22 06:44] LABS: Anion Gap 12 (12-20); Blood Urea Nitrogen 9 mg/dL (9-16); Calcium 9.2 mg/dL (8.4-10.2); Carbon Dioxide 25 mmol/L (22-29); Chloride 107 mmol/L (96-108); Creatinine Clr Calc Pharmacy 178.4; Estimated Glomerular Filt Rate > 60; Potassium 4.3 mmol/L (3.3-5.1); Sodium 140 mmol/L (135-145)
[2025-01-22 07:23] VITALS: BP 118/61; PULSE 76; RESP 18; TEMP 37.2; O2SAT 94
[2025-01-22] MEDS: Lactated Ringers 1,000 ML 100 ML IVCONT (08:14)
--- NOTE | 2025-01-22 09:18 | HO.POSTANES ---
Post Anesthesia Evaluation Post Anesthesia Evaluation Date of Service: 01/22/25 Vital Signs: Vital Signs Temp Pulse Resp BP Pulse Ox O2 Del Method 01/22/25 07:23 98.9 F 76 18 118/61 94 Room Air 01/22/25 03:34 97.3 F 77 18 118/55 L 97 Room Air 01/22/25 00:00 97.6 F 98 18 130/67 95 Room Air Anesthesia: General Mental Status: Awake Pain Control: Satisfactory Nausea/Vomiting: None Hydration: Adequate Anesthesia-Related Issues: No Anes. Related Issues
[2025-01-22 11:14] VITALS: BP 126/66; PULSE 69; RESP 18; TEMP 37.1; O2SAT 98
--- NOTE | 2025-01-22 15:19 | MHC.CM.PN ---
Addendum entered by Rand Carvajal RN 01/22/25 16:00: Medically cleared for dc home self care via private transport Original Note: Patient lives in an apartment alone. Functionally independent. Denies use of DME or services. PCP Omar Sharpe No HCP. CM provided education and offered assistance. Patient declined. DP: Home self care, private transport. CM will continue to follow.
[2025-01-22 15:51] VITALS: BP 133/70; PULSE 66; RESP 18; TEMP 37.1; O2SAT 95
== END 2025-01-22 16:22 | disposition home or self-care (01) | DRG 403 ==
LOC: HO.SSSA 09:52 → HO.S3 10:54
PROVIDERS: Surgery; Admitting Provider Physician Assistant Surgical; PCP Student in an Organized Health Care Education/Training Program; Visit Provider Physician Assistant Surgical
PROC: 0DB64Z3 Excision of Stomach, Percutaneous Endoscopic Approach, Vertical (ICD-10-PCS; CPT 43845; principal; 2025-01-21 07:30)
DX: E66.01 Morbid (severe) obesity due to excess calories (principal); G47.33 Obstructive sleep apnea (adult) (pediatric); Z71.3 Dietary counseling and surveillance; Z68.41 Body mass index [BMI] 40.0-44.9, adult; I10 Essential (primary) hypertension; Z87.891 Personal history of nicotine dependence; Z79.899 Other long term (current) drug therapy
CPT/HCPCS: 36415; 80048; 80053; 80061; 83036; 83525; 84443; 85014; 85018; 85025; 85610; 85730; 86140; 86850; 86900; 86901; 88304; 88305; 88307; 88342; A4649; C9145; J0131; J0690; J1100; J1171; J1308; J1630; J2003; J2250; J2405; J2704; J2795; J3010; J7120

== ENCOUNTER → 2025-01-21 06:30 | Outpatient (BNV) | payer OTHER, SELFPAY | PROVIDERS: Admitting Provider Physician Assistant Surgical; PCP Student in an Organized Health Care Education/Training Program; Visit Provider Surgery | DX: E66.01 Morbid (severe) obesity due to excess calories (principal); Z68.42 Body mass index [BMI] 45.0-49.9, adult | CPT/HCPCS: 43659; 43775; 99024 ==

== ENCOUNTER 2025-01-29 14:35 | Outpatient (AMB) | payer OTHER, SELFPAY ==
--- NOTE | 2025-01-29 14:56 | A.OFFVIS_ITS ---
VS Expanded 01/29/25 15:08 BP 140/81 H Blood Pressure Location Rt brachial Blood Pressure Position Sitting Pulse 63 Pulse Source Pulse Oximeter Temp 96.7 F L Temperature Source Temporal Artery Scan Pulse Oximetry 97 Oxygen Delivery Method Room Air Height 5 ft 10 in Weight 288 lb 9.6 oz BMI 41.4 Body Fat % 39.2 Body Fat Mass 113.0 Fat Free Mass 175.4 Visceral Fat Rating 21.0 Body Water % 42.8 Body Water Mass 123.4 Muscle Mass/Score 166.8 Basal Metabolic Rate/Score 2,473 Intake Visit Reasons: (OV) PO LSG 01/21/25 Allergies No Known Allergies Allergy (Verified 01/29/25 15:00) Medication List - Last Reconciled 01/29/25 by PAPITO Selby amlodipine 10 mg PO DAILY Held on 01/22/25. Instructions: Resume on 01/22/25. Only resume according to parameters given by Dr. Pena ondansetron 4 mg PO Q12H pantoprazole 40 mg PO DAILY sucralfate 10 mL PO BID HPI Comments Details: Pt is 1 week s/p LSG 01/21/2025. Pt is tolerating Premier and Isopure shakes, 3 per day. Hydration is adequate- around 40oz per day. BP- has been following parameters per Dr Modi and notes he has needed his amlodipine every day. Continues to use CPAP machine. [facility] Medical History (Updated 01/24/25 @ 00:01 by Nakul Dawkins) Prediabetes Hypertension Sleep apnea treated with continuous positive airway pressure (CPAP) Morbid obesity Surgical History (Updated 01/29/25 @ 15:00 by Marce Chavez CMA) S/P gastric sleeve procedure History of esophagogastroduodenoscopy (EGD) Hx of varicose vein ligation Hx of oral surgery Hx of appendectomy Family History Mother Diabetes Arthritis Father No problems noted. Social History Household Members: Family Housing: Apartment Are you a primary healthcare financial analyst to a significant other at home: No Do you presently have visiting nurse or other home services: No Alcohol intake: never Comment: comfortably resting Patient Tobacco Use Status: Former Tobacco user Tobacco use type: Cigarette service: No Physical Exam Vital Signs: Last Vital Signs Temp 96.7 F L 01/29/25 15:08 Pulse 63 01/29/25 15:08 BP 140/81 H 01/29/25 15:08 Pulse Ox 97 01/29/25 15:08 Oxygen Delivery Method Room Air 01/29/25 15:08 BMI result Body Mass Index 41.4 Assessment & Plan Assessment & Plan (1) Morbid obesity: Code(s): E66.01 - Morbid (severe) obesity due to excess calories Category: Medical (2) S/P laparoscopic sleeve gastrectomy: Code(s): Z98.84 - Bariatric surgery status Category: Medical Plan May shower tomorrow but no bath or submersion of abdomen in water. May start exercise.? No abdominal exercises x 6 weeks. Abdominal binder for the next 2 weeks with activity or exercise. Continue meal plan per Dr Modi until next f/u in 5 weeks. Reviewed pantoprazole and carafate dosing. Reminded of the pace of drinking 2 mL/min or 1oz per 15 min. Will be emailed link for post op video for review.
[2025-01-29 15:08] VITALS: BP 140/81; PULSE 63; TEMP 35.9; O2SAT 97; BMI 41.4
--- OUTSIDE RECORDS SUMMARY | 2025-01-29 20:44 | XMS_ITS | Clinical Summary ---
Author Organization [facility] ity Address [address] [place] [address] Care Team Providers Care Scheduling Manager Name Role Phone Unavailable Primary Care Provider [...]
== END 2025-01-29 15:49 | disposition home or self-care (01) ==
LOC: HO.HBS 14:35
PROVIDERS: PCP Student in an Organized Health Care Education/Training Program; Visit Provider Physician Assistant Surgical
DX: E66.01 Morbid (severe) obesity due to excess calories (principal); Z68.41 Body mass index [BMI] 40.0-44.9, adult; Z98.84 Bariatric surgery status; Z90.3 Acquired absence of stomach [part of]
CPT/HCPCS: 99024

== ENCOUNTER → 2025-01-29 14:35 | Outpatient (BNVA) | payer OTHER, SELFPAY | PROVIDERS: PCP Student in an Organized Health Care Education/Training Program; Visit Provider Physician Assistant Surgical | DX: E66.01 Morbid (severe) obesity due to excess calories (principal); Z98.84 Bariatric surgery status | CPT/HCPCS: 99212 ==

== ENCOUNTER 2025-03-12 10:48 | Outpatient (AMB) | payer OTHER, SELFPAY ==
--- NOTE | 2025-03-12 10:33 | MHC.OFFVISWM ---
VS Expanded 03/12/25 10:35 Height 5 ft 10 in Weight 266 lb BMI 38.2 Intake Visit Reasons: TV PO LSG 01/21/25 OKAY PER [place] Allergies No Known Allergies Allergy (Verified 01/29/25 15:00) Medication List - Last Reconciled 03/12/25 by PAPITO Selby amlodipine 10 mg PO DAILY Held on 01/22/25. Instructions: Resume on 01/22/25. Only resume according to parameters given by Dr. Pena pantoprazole 40 mg PO DAILY HPI Comments Details: This?is a 34?yo F who is s/p LSG 01/21/2025. Presents for 7 week post op visit. Weight at last visit on 01/29/2025 was 288.6 pounds with a BMI of 41.4. Weight today is 266 pounds, representing a pound weight loss with a BMI today of 38.2.? No complaints of nausea, emesis, abdominal pain or reflux, or constipation. Taking half or full pill of amlodipine most days- following parameters. Present meal plan includes: 3 protein shakes per day- [id number] 1 protein bar- Kd protein bar taking MVI Exercise routine includes: 1 hour cardio (1-1.5miles, then 20 min elliptical), half hour of weights- unsure of calorie burn; goes 4x/week [facility] Medical History (Updated 03/12/25 @ 10:38 by PAPITO Selby) Prediabetes Hypertension Sleep apnea treated with continuous positive airway pressure (CPAP) Morbid obesity Surgical History (Updated 01/30/25 @ 00:02 by Nakul Dawkins) S/P gastric sleeve procedure History of esophagogastroduodenoscopy (EGD) Hx of varicose vein ligation Hx of oral surgery Hx of appendectomy Family History Mother Diabetes Arthritis Father No problems noted. Social History Household Members: Family Housing: Apartment Are you a primary wound care physician to a significant other at home: No Do you presently have visiting nurse or other home services: No Alcohol intake: never Comment: comfortably resting Patient Tobacco Use Status: Former Tobacco user Tobacco use type: Cigarette service: No Telehealth Telehealth Telehealth Platform: Telephone Location of provider rendering services: practice address Location of patient: address on file Patient Identification confirmed using: Name, : Yes Telehealth method: voice only Patient verbally consented to treatment: Yes Patient verbally consented to billing insurance company: Yes Patient informed of any privacy concerns related to visit: Yes Minutes spent on Phone/Video with Pt.: 15 Assessment & Plan Assessment & Plan (1) S/P laparoscopic sleeve gastrectomy: Code(s): Z98.84 - Bariatric surgery status Category: Medical (2) Obesity: Code(s): E66.9 - Obesity, unspecified Category: Medical Plan Pt to continue on above meal plan. He will continue texting Dr Modi and I told him he could ask about incorporating solid food the next time he communicates, if he would like. I asked him to track his calories burned to make sure he is meeting 2000 malik week goal. Finished carafate, will continue pantoprazole. RTC 6w with Ofelia for TV.
[2025-03-12 10:35] VITALS: BMI 38.2
--- OUTSIDE RECORDS SUMMARY | 2025-03-12 12:31 | XMS_ITS | Clinical Summary ---
Author Organization [facility] ity Address [address] [place] [address] Care Team Providers Care Director Social Welfare Name Role Phone Unavailable Primary Care Provider [...] Depression Screening 04/10/2024 COVID-19 Vaccine (1 - 2024-2 6 season) 2024 Influenza Vaccine (#1) 2024 RSV [...]
== END 2025-03-12 10:48 | disposition home or self-care (01) ==
LOC: HO.HBS 10:48
PROVIDERS: PCP Student in an Organized Health Care Education/Training Program; Visit Provider Physician Assistant Surgical
DX: E66.812 Obesity, class 2 (principal); Z68.38 Body mass index [BMI] 38.0-38.9, adult; Z90.3 Acquired absence of stomach [part of]; Z98.84 Bariatric surgery status
CPT/HCPCS: 99024